=== PATIENT | female | born 1970 | race African-American/Black ===

== ENCOUNTER 2016-05-13 17:22 | Emergency (ER) | payer SELFPAY ==
[2016-05-13 17:45] VITALS: BP 130/84
--- NOTE | 2016-05-13 17:48 | ER Document Report ---
ED Medical Screen (RME) - General Stated Complaint: FEVER Time seen by provider: 17:46 Mode of Arrival: Ambulatory Information source: Patient Notes: 45-year-old female presents to ED for fever when the highest was 104. States when she starts got cough and really hard she vomits. [id number] was diagnosed with pneumonia 3 days ago. She states she did not get a flu shot this year I have greeted and performed a rapid initial assessment of this patient. A comprehensive ED assessment and evaluation of the patient, analysis of test results and completion of medical decision making process will be conducted by an additional ED providers. - Related Data Allergies/Adverse Reactions: No Known Allergies Allergy (Verified 07/27/12 14:08) Past Medical History - Social History Family history: Reviewed & Not Pertinent Past Surgical History: Reports: Hx Gynecologic Surgery - ECTOPIC PREG, L TUBE & OVARY REMOVED. Physical Exam - Vital signs Vitals: Temp Pulse Resp BP Pulse Ox 98.3 F 52 L 16 130/84 H 98 05/13/16 17:45 05/13/16 17:45 05/13/16 17:45 05/13/16 17:45 05/13/16 17:45 Course - Vital Signs Vital signs: Temp Pulse Resp BP Pulse Ox 98.3 F 52 L 16 130/84 H 98 05/13/16 17:45 05/13/16 17:45 05/13/16 17:45 05/13/16 17:45 05/13/16 17:45
[2016-05-13 18:22] LABS: ABSOLUTE BASOPHILS # (AUTO) 0.1 10^3/uL (0.0-0.2); ABSOLUTE LYMPHOCYTES (AUTO) 1.7 10^3/uL (0.5-4.7); ABSOLUTE MONOCYTES (AUTO) 1.2 10^3/uL (0.1-1.4); ABSOLUTE NEUT (AUTO) 9.6 10^3/uL (1.7-8.2); BASOPHILS % (AUTO) 0.7 % (0-2); HEMATOCRIT 46.8 % (36.0-47.0); HEMOGLOBIN 15.8 g/dL (12.0-15.5); HGB HCT DIFFERENCE 0.6; LYMPHOCYTES % (AUTO) 13.7 % (13-45); MEAN CORPUSCULAR HEMOGLOBIN 31.4 pg (27.0-33.4); MEAN CORPUSCULAR HGB CONC 33.7 g/dL (32.0-36.0); MEAN CORPUSCULAR VOLUME 93 fl (80-97); MONOCYTES % (AUTO) 9.4 % (3-13); RED BLOOD COUNT 5.02 10^6/uL (3.72-5.28); RED CELL DISTRIBUTION WIDTH 13.2 % (11.5-14.0); SEGMENTED NEUTROPHILS % (AUTO) 76.2 % (42-78); WHITE BLOOD COUNT 12.6 10^3/uL (4.0-10.5)
[2016-05-13 18:31] LABS: APPEARANCE,URINE SLIGHTLY-CLOUDY; BILIRUBIN,URINE NEGATIVE (NEGATIVE); GLUCOSE, URINE NEGATIVE (NEGATIVE); KETONES,URINE 80 mg/dL (NEGATIVE); LEUKOCYTE ESTERASE,URINE NEGATIVE (NEGATIVE); NITRITE,URINE NEGATIVE (NEGATIVE); PROTEIN,URINE 100 mg/dL (NEGATIVE); URINE SPECIFIC GRAVITY 1.031
[2016-05-13 18:43] LABS: ALANINE AMINOTRANSFERASE 48 U/L (9-52); ALKALINE PHOSPHATASE 111 U/L (38-126); ANION GAP 17 (5-19); ASPARTATE AMINO TRANSFERASE 34 U/L (14-36); BILIRUBIN,TOTAL 0.9 mg/dL (0.2-1.3); BLOOD UREA NITROGEN 13 mg/dL (7-20); CALCIUM 10.8 mg/dL (8.4-10.2); CARBON DIOXIDE 25 mmol/L (22-30); CHLORIDE 100 mmol/L (98-107); GLUCOSE 98 mg/dL (75-110); POTASSIUM 4.3 mmol/L (3.6-5.0); SODIUM 141.9 mmol/L (137-145); TOTAL PROTEIN 8.8 g/dL (6.3-8.2)
[2016-05-13] MEDS ORDERED: KETOROLAC TROMETHAMINE 60 MG/2 ML SDV IM ONE (19:05)
[2016-05-13] MEDS ORDERED: PROMETHAZINE HCL INJ 25 MG/1 ML VIAL IM ONE (19:05)
--- NOTE | 2016-05-13 19:14 | ER Document Report ---
ED Flu Like - General Chief Complaint: Flu Symptoms Stated Complaint: FEVER Mode of Arrival: Ambulatory Information source: Patient Notes: This is a 45-year-old female who presents with three-day history of cough and congestion along with fever at home up to 104. She states that at times her sputum is green. She has also had some posttussive emesis today and decreased by mouth intake. Also today she has had some diarrhea. She denies any known sick contacts and no recent travel. TRAVEL OUTSIDE OF THE [place] IN LAST 30 DAYS: No - Related Data Allergies/Adverse Reactions: No Known Allergies Allergy (Verified 05/13/16 17:46) Past Medical History - General Information source: Patient - Social History Smoking Status: Current Every Day Smoker Chew tobacco use (# tins/day): No Frequency of alcohol use: Occasional Drug Abuse: Marijuana Family History: Reviewed & Not Pertinent Patient has suicidal ideation: No Patient has homicidal ideation: No Neurological Medical History: Reports: Hx Seizures - previous hx Renal/ Medical History: Denies: Hx Peritoneal Dialysis Past Surgical History: Reports: Hx Gynecologic Surgery - ECTOPIC PREG, L TUBE & OVARY REMOVED. Review of Systems - Review of Systems Notes: REVIEW OF SYSTEMS: CONSTITUTIONAL : Fevers as per history of present illness EENT: Denies eye, ear, throat, or mouth pain or symptoms. Nasal congestion as for history of present illness CARDIOVASCULAR: Denies chest pain. RESPIRATORY: As per history of present illness GASTROINTESTINAL: Denies abdominal pain. Denies nausea, vomiting. Diarrhea as per history of present illness GENITOURINARY: Denies difficulty urinating, painful urination, burning, frequency, or blood in urine. MUSCULOSKELETAL: Denies neck or back pain or joint pain or swelling. SKIN: Denies rash or skin lesions. HEMATOLOGIC : Denies easy bruising or bleeding. LYMPHATIC: Denies swollen, enlarged glands. NEUROLOGICAL: Denies altered mental status or loss of consciousness. Denies headache. PSYCHIATRIC: Denies anxiety or stress or depression. ALL OTHER SYSTEMS REVIEWED AND NEGATIVE. Physical Exam - Vital signs Vitals: Temp Pulse Resp BP Pulse Ox 98.3 F 52 L 16 130/84 H 98 05/13/16 17:45 05/13/16 17:45 05/13/16 17:45 05/13/16 17:45 05/13/16 17:45 - Notes Notes: PHYSICAL EXAMINATION: GENERAL: Thin -[place] female who appears to not feel well but is nontoxic. She is alert and conversant. HEAD: Atraumatic, normocephalic. EYES: Pupils equal round and reactive to light, extraocular movements intact, sclera anicteric, conjunctiva are normal. ENT: nares patent, oropharynx clear without exudates. Mucous membranes somewhat dry. NECK: Normal range of motion, supple without lymphadenopathy LUNGS: Breath sounds clear to auscultation bilaterally and equal. No wheezes rales or rhonchi. HEART: Regular rate and rhythm without murmurs ABDOMEN: Soft, nontender, normoactive bowel sounds. No guarding, no rebound. No masses appreciated. EXTREMITIES: Normal range of motion, no pitting or edema. No cyanosis. NEUROLOGICAL: Cranial nerves grossly intact. Normal speech, no gross focal motor or sensory deficits noted PSYCH: Normal mood, normal affect. SKIN: Warm, Dry, normal turgor, no rashes or lesions noted. Course - Vital Signs Vital signs: Temp Pulse Resp BP Pulse Ox 98.3 F 52 L 16 130/84 H 98 05/13/16 17:45 05/13/16 17:45 05/13/16 17:45 05/13/16 17:45 05/13/16 17:45 - Laboratory Result Diagrams: 05/13/16 17:55 05/13/16 17:55 Laboratory results interpreted by me: 05/13/16 05/13/16 05/13/16 17:55 17:55 18:00 WBC 12.6 H Hgb 15.8 H Absolute Neutrophils 9.6 H Calcium 10.8 H Total Protein 8.8 H Urine Protein 100 H Urine Ketones 80 H Urine Urobilinogen 2.0 H Discharge - Discharge Clinical Impression: Flu-like symptoms, Tobacco abuse Condition: Stable Disposition: HOME, SELF-CARE Additional Instructions: INFLUENZA: The physician feels that you have influenza -- the "flu". Influenza is an infection caused by a virus. Symptoms include generalized aching, fever, headache, dry cough, and fatigue. Some patients with the flu also have nausea, vomiting, and diarrhea. The fever and aches usually last two to four days, with the cough persisting another one to two weeks. Treatment of the flu, for the most part, is simply treatment of symptoms. Rest, drink plenty of fluids, and use acetaminophen for fever and aches. Do not take aspirin. There is an anti-viral medication, called Tamiflu, which may help in "type A" flu, but it's not helpful in every case of flu, and only works if started within the first 24 - 48 hours of the start of symptoms. The physician will determine whether this medication can help you. To prevent spread of the virus, use good handwashing. Shared toys should be cleaned with disinfectant. Clean the toilets, sinks, and counter surfaces in bathrooms. Launder clothing in hot water. What are conditions that should receive medical attention? The development of difficulty breathing. Lip color changes to blue or purple. Persistent vomiting and unable to keep liquids down with signs of dehydration such as: dizziness when standing, unable to urinate, or if child/ is crying no tears are noticed. Is less responsive than normal or becomes confused. How do I decrease the spread of flu in my home? Taking care of the sick patient at home: Keep the sick person in a room separate from the common areas of the house. Keep the "sickroom" door closed. If the person with the flu needs to leave the home, they should cover their nose/mouth when coughing or sneezing and wear a disposable (surgical) mask if available. These masks may be available at your local pharmacy, medical supply and hardware store. If the sick person is in common areas of the house, have them wear a surgical mask. If possible, have the sick person use a separate bathroom that should be cleaned daily with a household disinfectant. If you are the caregiver: Avoid being face to face with the sick adult person as much as possible. Try to stay at least 6 feet away and wear a disposable surgical mask when possible. When holding small children who are sick, place their chin on your shoulder so that they will not cough in your face. Wash your hands after you touch the sick person or handle their tissues and laundry. Wear a mask if you leave home, as you may be infected from taking care of someone and not know it yet. Watch yourself and others in the home for flu symptoms and contact your doctor if symptoms occur. NOTE: Antiviral medication used to reduce the symptoms of the flu works only if taken within 48 hours, and best within 24 hours of symptom onset. Household Cleaning, laundry and waste disposal: Tissues and other disposable items used by the sick person should be thrown away in the trash. Wash your hands after touching these used items. No special waste disposal is required. Keep surfaces (especially bedside tables, bathroom surfaces, and toys for children) clean by wiping them down with a safe household disinfectant according to the directions on the product label. Per Center for Disease Control advice, most people will not receive testing to confirm flu. Also based on the person's health history and onset of symptoms, not all patients will receive prescriptions for antiviral medications. If you have questions related to this, please ask your healthcare provider. For more information, you can call the Centers for Disease Control and Prevention (CDC) Hotline at 3-537-[employer]KZBioDtech This line is available in Nepalese and Bermudian, 24 hours a day, 7 days a week. Or www.[employer] or www.cdc.gov Flu-Like Illness Home Instructions: The influenza virus infection can cause a wide rage of symptoms, including: Fever, cough, sore throat, body aches, headaches, chills, fatigue, with some patients reporting diarrhea and vomiting Like seasonal influenza A, H1N1 ("swine flu")in humans can vary in severity from mild to severe Severe illness with pneumonia, respiratory failure and even is possible Certain groups might be more likely to develop a severe illness from H1N1 infection. Sometimes bacterial infections may occur at the same time as or after infection with influenza viruses and lead to pneumonias, ear infections, or sinus infections. How Flu Spreads The main way that influenza viruses spread is through respiratory droplets of coughs and sneezes. This can happen when someone with the infection coughs or sneezes and the particles fly through the air and land on other people and surfaces. If the person covers their mouth and nose with their hand but does not wash their hands immediately, then these germs are passed onto the next object that they touch. People with Influenza A or suspected H1N1 (swine flu) who are cared for at home should: Check with their doctor about any special care that they might need if they are or have a health condition such as diabetes, heart disease, asthma or emphysema. Also, limit caregiver to one (if possible). women or those with chronic health conditions should not take care of the flu patient unless necessary. Check with their doctor about whether or not medications are needed that may lessen the symptoms of the flu. Stay at home until 24 hours fever free without the use of fever reducing medication. Get plenty of rest and avoid other healthy people in your home. Drink plenty of clear liquids to keep from getting dehydrated. Take medications like Tylenol (Acetaminophen), Advil/Motrin/Nuprin ( Ibuprofen) or Aleve (Naproxen) for fevers and aches. All children under the age of 18 years of age should not take aspirin or products containing aspirin (e.g. Pepto Bismol), as this can cause a rare serious illness called Neil Syndrome. Over the counter medications for flu and colds may help, but it is very important to follow the package directions. Remember that the medicine may help the symptoms, but it will not help prevent others from getting sick if they are around you. Cover coughs and sneezes using your bent arm. Clean hands with soap and water or an alcohol-based hand rub often, especially after using tissues to cough or sneeze. Encourage hand washing frequently for all people living in the home! The sick person should not have visitors other than caregivers. Encourage concerned loved ones to call instead of visit. Avoid close contact with others-do not go to work or school while sick. FOLLOW-UP CARE: If you have been referred to a physician for follow-up care, call the physician s office for an appointment as you were instructed or within the next two days. If you experience worsening or a significant change in your symptoms, notify the physician immediately or return to the Emergency Department at any time for re-evaluation. Rest and drink plenty of fluids. Continue Tylenol and ibuprofen as needed for fevers. Take antibiotics as prescribed. Follow-up with your primary care physician this week and return to the emergency department for any worsening symptoms or concerns. Prescriptions: Azithromycin [Zithromax 250 mg Tablet] 250 mg PO ASDIR PRN #6 tablet PRN Reason: Promethazine HCl [Phenergan 25 mg Tablet] 25 mg PO Q8H PRN #10 tablet PRN Reason: For Nausea/Vomiting
[2016-05-13] MEDS ORDERED: PROMETHAZINE HCL INJ 25 MG/1 ML VIAL ONE (20:08)
== END 2016-05-13 20:52 | disposition home or self-care (01) ==
LOC: ER 17:22
DX: R50.9 Fever, unspecified (principal); R05 Cough; R68.89 Other general symptoms and signs; R19.7 Diarrhea, unspecified; F17.200 Nicotine dependence, unspecified, uncomplicated
CPT/HCPCS: 99284; 96372; 36415; 84703; 85025; 80053; 81001; 87804; 71020; J1885; J2550

== ENCOUNTER 2016-05-15 15:22 | Emergency (ER) | payer SELFPAY ==
[2016-05-15] MEDS ORDERED: ASPIRIN 81 MG TABLET, CHEWABLE PO ONE (15:39)
--- NOTE | 2016-05-15 15:41 | ER Document Report ---
ED Medical Screen (RME) - General Stated Complaint: SHORTNESS OF BREATH Mode of Arrival: Wheelchair Information source: Patient Notes: Patient reports shortness of breath that started 2 days ago. Patient states she was recently diagnosed with influenza. Patient complains of left side chest pressure difficulty breathing. Patient does report nausea with dry heaving. hx: None TRAVEL OUTSIDE OF THE [place] IN LAST 30 DAYS: No - Related Data Allergies/Adverse Reactions: No Known Allergies Allergy (Verified 05/15/16 15:36) Past Medical History - Social History Family history: Reviewed & Not Pertinent Neurological Medical History: Reports: Hx Seizures - previous hx Renal/ Medical History: Denies: Hx Peritoneal Dialysis Past Surgical History: Reports: Hx Gynecologic Surgery - ECTOPIC PREG, L TUBE & OVARY REMOVED. Physical Exam - Cardiovascular Rhythm: Regular Heart sounds: S1 appreciated, S2 appreciated
[2016-05-15 16:14] LABS: ABSOLUTE BASOPHILS # (AUTO) 0.1 10^3/uL (0.0-0.2); ABSOLUTE LYMPHOCYTES (AUTO) 2.5 10^3/uL (0.5-4.7); ABSOLUTE MONOCYTES (AUTO) 1.8 10^3/uL (0.1-1.4); ABSOLUTE NEUT (AUTO) 12.1 10^3/uL (1.7-8.2); BASOPHILS % (AUTO) 0.6 % (0-2); EOSINOPHILS % (AUTO) 0.1 % (0-6); HEMATOCRIT 47.3 % (36.0-47.0); HGB HCT DIFFERENCE 0.7; LYMPHOCYTES % (AUTO) 15.3 % (13-45); MEAN CORPUSCULAR HEMOGLOBIN 31.3 pg (27.0-33.4); MEAN CORPUSCULAR HGB CONC 33.9 g/dL (32.0-36.0); MEAN CORPUSCULAR VOLUME 93 fl (80-97); MONOCYTES % (AUTO) 10.7 % (3-13); RED BLOOD COUNT 5.11 10^6/uL (3.72-5.28); RED CELL DISTRIBUTION WIDTH 13.1 % (11.5-14.0); SEGMENTED NEUTROPHILS % (AUTO) 73.3 % (42-78); WHITE BLOOD COUNT 16.5 10^3/uL (4.0-10.5)
[2016-05-15 16:31] LABS: APPEARANCE,URINE SLIGHTLY-CLOUDY; BILIRUBIN,URINE NEGATIVE (NEGATIVE); GLUCOSE, URINE NEGATIVE (NEGATIVE); KETONES,URINE 20 mg/dL (NEGATIVE); LEUKOCYTE ESTERASE,URINE NEGATIVE (NEGATIVE); NITRITE,URINE NEGATIVE (NEGATIVE); PROTEIN,URINE 100 mg/dL (NEGATIVE)
[2016-05-15 16:35] LABS: ALANINE AMINOTRANSFERASE 42 U/L (9-52); ALBUMIN 4.7 g/dL (3.5-5.0); ALKALINE PHOSPHATASE 112 U/L (38-126); ANION GAP 18 (5-19); ASPARTATE AMINO TRANSFERASE 39 U/L (14-36); BILIRUBIN,TOTAL 1.1 mg/dL (0.2-1.3); BLOOD UREA NITROGEN 13 mg/dL (7-20); CALCIUM 10.2 mg/dL (8.4-10.2); CARBON DIOXIDE 20 mmol/L (22-30); CHLORIDE 99 mmol/L (98-107); CREATINE KINASE 421 U/L (30-135); CREATININE RESULT 0.62 mg/dL (0.52-1.25); GLUCOSE 116 mg/dL (75-110); POTASSIUM 3.6 mmol/L (3.6-5.0); SODIUM 136.6 mmol/L (137-145); TOTAL PROTEIN 8.7 g/dL (6.3-8.2)
[2016-05-15 16:36] LABS: URINE BARBITURATES SCREEN NEGATIVE; URINE METHADONE SCREEN NEGATIVE; URINE OPIATES LOW NEGATIVE; URINE PHENCYCLIDINE SCREEN NEGATIVE
[2016-05-15 16:44] LABS: CREATINE KINASE MB 1.95 ng/mL (<4.55)
[2016-05-15 16:45] LABS: TROPONIN I < 0.012 ng/mL
[2016-05-15] MEDS ORDERED: IPRATROPIUM/ALBUTEROL 0.5-2.5 MG/3 ML AMPUL NEB ONE ×3 (17:40→17:41)
[2016-05-15] MEDS ORDERED: HYDROCODONE BIT/HOMATROPINE 5-1.5 MG TABLET PO ONE (17:41)
[2016-05-15] MEDS ORDERED: LEVOFLOXACIN 750 MG TABLET PO ONE (17:41)
[2016-05-15] MEDS ORDERED: PROMETHAZINE HCL 25 MG TABLET PO ONE (18:04)
--- NOTE | 2016-05-15 18:08 | ER Document Report ---
ED General - General Chief Complaint: Shortness Of Breath Stated Complaint: SHORTNESS OF BREATH Mode of Arrival: Wheelchair Information source: Patient Notes: 45-year-old female presents with complaints of body aches fevers productive cough shortness of breath of about one week duration. Patient admits to nausea vomiting TRAVEL OUTSIDE OF THE [place] IN LAST 30 DAYS: No - HPI Onset: Last week Onset/Duration: Persistent Quality of pain: Achy Severity: Mild Pain Level: 1 Associated symptoms: Body/muscle aches, Productive cough, Fever Exacerbated by: Denies Relieved by: Denies Similar symptoms previously: Yes Recently seen / treated by doctor: Yes - Related Data Allergies/Adverse Reactions: No Known Allergies Allergy (Verified 05/15/16 15:36) Past Medical History - General Information source: Patient - Social History Smoking Status: Current Every Day Smoker Cigarette use (# per day): Yes Chew tobacco use (# tins/day): No Smoking Education Provided: Yes - Patient counselled regarding cessation for 4 minutes Frequency of alcohol use: None Drug Abuse: None Family History: Reviewed & Not Pertinent Patient has suicidal ideation: No Patient has homicidal ideation: No Neurological Medical History: Reports: Hx Seizures - previous hx Renal/ Medical History: Denies: Hx Peritoneal Dialysis Past Surgical History: Reports: Hx Gynecologic Surgery - ECTOPIC PREG, L TUBE & OVARY REMOVED. Review of Systems - Review of Systems Notes: REVIEW OF SYSTEMS: CONSTITUTIONAL : Admits fevers EENT: Denies eye, ear, throat, or mouth pain or symptoms. Denies nasal or sinus congestion or discharge. Denies throat, tongue, or mouth swelling or difficulty swallowing. CARDIOVASCULAR: Denies chest pain. Denies palpitations or racing or irregular heart beat. Denies ankle edema. RESPIRATORY: Admits cough congestion wheezing GASTROINTESTINAL: Denies abdominal pain or distention. Denies nausea, vomiting , or diarrhea. Denies blood in vomitus, stools, or per rectum. Denies black, tarry stools. Denies constipation. GENITOURINARY: Denies difficulty urinating, painful urination, burning, frequency, blood in urine, or discharge. FEMALE GENITOURINARY: Denies vaginal bleeding, heavy or abnormal periods, irregular periods. Denies vaginal discharge or odor. MUSCULOSKELETAL: Admits to body aches SKIN: Denies rash, lesions or sores. HEMATOLOGIC : Denies easy bruising or bleeding. LYMPHATIC: Denies swollen, enlarged glands. NEUROLOGICAL: Denies confusion or altered mental status. Denies passing out or loss of consciousness. Denies dizziness or lightheadedness. Denies headache. Denies weakness or paralysis or loss of use of either side. Denies problems with gait or speech. Denies sensory loss, numbness, or tingling. Denies seizures. PSYCHIATRIC: Denies anxiety or stress. Denies depression, suicidal ideation, or homicidal ideation. ALL OTHER SYSTEMS REVIEWED AND NEGATIVE. Dictation was performed using [employer] voice recognition software PHYSICAL EXAMINATION: GENERAL: Well-appearing, well-nourished and in no acute distress. HEAD: Atraumatic, normocephalic. EYES: Pupils equal round and reactive to light, extraocular movements intact, conjunctiva are normal. ENT: Nares patent, oropharynx clear without exudates. Moist mucous membranes. NECK: Normal range of motion, supple without lymphadenopathy LUNGS: Coarse breath sounds wheezing all throughout tachypneic HEART: Regular rate and rhythm without murmurs ABDOMEN: Soft, nontender, nondistended abdomen. No guarding, no rebound. No masses appreciated. Female : deferred Musculoskeletal: Normal range of motion, no pitting or edema. No cyanosis. NEUROLOGICAL: Cranial nerves grossly intact. Normal speech, normal gait. Normal sensory, motor exams PSYCH: Normal mood, normal affect. SKIN: Warm, Dry, normal turgor, no rashes or lesions noted. Physical Exam - Vital signs Vitals: Temp Pulse Resp BP Pulse Ox 98.4 F 111 H 16 129/72 H 99 05/15/16 16:00 05/15/16 16:00 05/15/16 16:00 05/15/16 16:00 05/15/16 16:00 Course - Re-evaluation Re-evalutation: 05/15/16 18:07 Patient noted to have increased white count, chest x-rays consistent with a left lower lobe pneumonia. 05/15/16 18:32 Patient notes significant relief after 3 duo nebs, she is aerating much better. She will be ambulated and pulse ox will be rechecked 05/15/16 20:01 Patient is insistent that she go home, she was ambulated satting 96% however becomes tachycardic at 121. I spent to her with some benefits and I did offer her admission. Patient states she wants to go home. She understands risks and benefits and states she will return immediately if there are any other concerns. Family members in agreement with her plan. I gave them my card and instructed them to return immediately or to call me if there is any other concerns After performing a Medical Screening Examination, I estimate there is LOW risk for ACUTE CORONARY SYNDROME, RESPIRATORY FAILURE, SEPSIS OR MENINGITIS, thus I consider the discharge disposition reasonable. The patient and I have discussed the diagnosis and risks, and we agree with discharging home with close follow- up. We also discussed returning to the Emergency Department immediately if new or worsening symptoms occur. We have discussed the symptoms which are most concerning (e.g., changing or worsening pain, trouble swallowing or breathing, neck stiffness, fever) that necessitate immediate return. - Vital Signs Vital signs: Temp Pulse Resp BP Pulse Ox 98.4 F 111 H 16 129/72 H 99 05/15/16 16:00 05/15/16 16:00 05/15/16 16:00 05/15/16 16:00 05/15/16 16:00 - Laboratory Result Diagrams: 05/15/16 15:50 05/15/16 15:50 Laboratory results interpreted by me: 05/15/16 05/15/16 05/15/16 15:50 15:50 15:50 WBC 16.5 H Hgb 16.0 H Hct 47.3 H Absolute Neutrophils 12.1 H Absolute Monocytes 1.8 H Sodium 136.6 L Carbon Dioxide 20 L Glucose 116 H AST 39 H Creatine Kinase 421 H Total Protein 8.7 H Urine Protein 100 H Urine Ketones 20 H Urine Urobilinogen 4.0 H - Diagnostic Test Radiology reviewed: Image reviewed, Reports reviewed Discharge - Discharge Clinical Impression: Encounter for smoking cessation counseling, Respiratory distress Pneumonia Qualifiers: Pneumonia type: due to unspecified organism Laterality: left Lung location: lower lobe of lung Qualified Code(s): J18.1 - Lobar pneumonia, unspecified organism Condition: Stable Disposition: HOME, SELF-CARE Instructions: Pneumonia ([facility]) Additional Instructions: Return immediately if there are any other concerns Prescriptions: Hydrocodone Bit/Homatropine [Hycodan 5-1.5 mg Tablet] 1 tab PO Q4HP PRN #24 tablet PRN Reason: Levofloxacin [Levaquin 750 mg Tablet] 750 mg PO DAILY #5 tablet Prednisone [Deltasone 20 mg Tablet] 3 tab PO DAILY 5 Days
--- NOTE | 2016-05-15 18:30 | EKG REPORT ---
SEVERITY:- ABNORMAL ECG - SINUS RHYTHM LEFT AXIS DEVIATION IRBBB : Confirmed by: Michael Lao MD 15-May-2016 18:30:26
[2016-05-15] MEDS ORDERED: DEXAMETHASONE SOD PHOS INJ 10 MG/1 ML VIAL IM ONE (20:52)
[2016-05-16 00:18] VITALS: BP 119/79
== END 2016-05-15 20:55 | disposition home or self-care (01) ==
LOC: ER 15:22
DX: J18.1 Lobar pneumonia, unspecified organism (principal); R06.02 Shortness of breath; R11.2 Nausea with vomiting, unspecified; M79.1 Myalgia; R50.9 Fever, unspecified; R05 Cough; F17.210 Nicotine dependence, cigarettes, uncomplicated; Z71.6 Tobacco abuse counseling; R06.2 Wheezing; D72.829 Elevated white blood cell count, unspecified
CPT/HCPCS: 93005; 99406; 94640 ×2; 99285; 96372; 36415; 82553; 82550; 84703; 85025; 80053; 81001; 84484; 80307; 71020; 93010; J1100; J7620

== ENCOUNTER 2016-05-20 11:10 | Emergency (ER) | payer SELFPAY ==
[2016-05-20] MEDS ORDERED: ONDANSETRON 4 MG TAB.RAPDIS PO ONE (11:23)
--- NOTE | 2016-05-20 11:24 | ER Document Report ---
ED Medical Screen (RME) - General Stated Complaint: STOMACH PAIN Time seen by provider: 11:22 Mode of Arrival: Ambulatory Notes: Patient states this is her third visit to the emergency room, last visit was about 1 week ago when she was diagnosed with pneumonia. States continuing to have vomiting since them, unable to keep anything down. I have greeted and performed a rapid initial assessment of this patient. A comprehensive ED assessment and evaluation of the patient, analysis of test results and completion of the medical decision making process will be conducted by additional ED providers. TRAVEL OUTSIDE OF THE [place] IN LAST 30 DAYS: No - Related Data Allergies/Adverse Reactions: No Known Allergies Allergy (Verified 05/20/16 11:21) Past Medical History - Social History Family history: Reviewed & Not Pertinent Neurological Medical History: Reports: Hx Seizures - previous hx Renal/ Medical History: Denies: Hx Peritoneal Dialysis Past Surgical History: Reports: Hx Gynecologic Surgery - ECTOPIC PREG, L TUBE & OVARY REMOVED. Physical Exam - Abdominal Inspection: Normal Tenderness: Tender - epigastric area
[2016-05-20 12:14] LABS: ABSOLUTE LYMPHOCYTES (AUTO) 3.7 10^3/uL (0.5-4.7); ABSOLUTE MONOCYTES (AUTO) 0.6 10^3/uL (0.1-1.4); ABSOLUTE NEUT (AUTO) 4.9 10^3/uL (1.7-8.2); BASOPHILS % (AUTO) 0.4 % (0-2); EOSINOPHILS % (AUTO) 0.5 % (0-6); HEMATOCRIT 44.7 % (36.0-47.0); HEMOGLOBIN 15.4 g/dL (12.0-15.5); HGB HCT DIFFERENCE 1.5; LYMPHOCYTES % (AUTO) 39.5 % (13-45); MEAN CORPUSCULAR HEMOGLOBIN 31.8 pg (27.0-33.4); MEAN CORPUSCULAR HGB CONC 34.4 g/dL (32.0-36.0); MEAN CORPUSCULAR VOLUME 92 fl (80-97); MONOCYTES % (AUTO) 6.8 % (3-13); RED BLOOD COUNT 4.84 10^6/uL (3.72-5.28); RED CELL DISTRIBUTION WIDTH 12.8 % (11.5-14.0); SEGMENTED NEUTROPHILS % (AUTO) 52.8 % (42-78); WHITE BLOOD COUNT 9.3 10^3/uL (4.0-10.5)
[2016-05-20] MEDS ORDERED: ONDANSETRON HCL INJ/PF 4 MG/2 ML SDV IV ONE (12:28)
[2016-05-20] MEDS ORDERED: IPRATROPIUM/ALBUTEROL 0.5-2.5 MG/3 ML AMPUL NEB ONE (12:28)
[2016-05-20] MEDS ORDERED: NORMAL SALINE 1000 ML 1,000 ML IV ONE (12:28)
[2016-05-20 12:45] LABS: ALANINE AMINOTRANSFERASE 39 U/L (9-52); ALBUMIN 4.3 g/dL (3.5-5.0); ALKALINE PHOSPHATASE 76 U/L (38-126); ANION GAP 10 (5-19); ASPARTATE AMINO TRANSFERASE 21 U/L (14-36); BILIRUBIN,TOTAL 0.8 mg/dL (0.2-1.3); BLOOD UREA NITROGEN 16 mg/dL (7-20); CALCIUM 10.5 mg/dL (8.4-10.2); CARBON DIOXIDE 33 mmol/L (22-30); CHLORIDE 99 mmol/L (98-107); CREATININE RESULT 0.87 mg/dL (0.52-1.25); GLUCOSE 92 mg/dL (75-110); POTASSIUM 4.3 mmol/L (3.6-5.0); SODIUM 141.6 mmol/L (137-145); TOTAL PROTEIN 7.7 g/dL (6.3-8.2)
[2016-05-20 14:09] LABS: APPEARANCE,URINE SLIGHTLY-CLOUDY; BILIRUBIN,URINE NEGATIVE (NEGATIVE); GLUCOSE, URINE NEGATIVE (NEGATIVE); KETONES,URINE TRACE mg/dL (NEGATIVE); LEUKOCYTE ESTERASE,URINE NEGATIVE (NEGATIVE); NITRITE,URINE NEGATIVE (NEGATIVE); PROTEIN,URINE NEGATIVE (NEGATIVE); URINE SPECIFIC GRAVITY 1.019; UROBILINOGEN,URINE NEGATIVE mg/dL (<2.0)
[2016-05-20 14:20] VITALS: BP 121/76
--- NOTE | 2016-05-20 14:22 | ER Document Report ---
ED General - General Chief Complaint: uti,flank pain Stated Complaint: STOMACH PAIN Mode of Arrival: Ambulatory Information source: Patient Notes: 45-year-old female presents with complaints of decreased appetite nausea vomiting. Patient notes that she was seen by myself about a week ago was diagnosed with pneumonia was offered admission but refused to be admitted. He notes she's been taking her antibiotics but continues to have intermittent cough with sputum. TRAVEL OUTSIDE OF THE [place] IN LAST 30 DAYS: No - HPI Onset: Last week Onset/Duration: Persistent Quality of pain: Achy Severity: Mild Pain Level: 1 Associated symptoms: Productive cough, Nausea, Vomiting Exacerbated by: Denies Relieved by: Denies Similar symptoms previously: Yes Recently seen / treated by doctor: Yes - Related Data Allergies/Adverse Reactions: No Known Allergies Allergy (Verified 05/20/16 11:21) Past Medical History - Social History Smoking Status: Current Every Day Smoker Cigarette use (# per day): Yes Chew tobacco use (# tins/day): No Smoking Education Provided: No Frequency of alcohol use: Social Drug Abuse: Marijuana Family History: Reviewed & Not Pertinent Patient has suicidal ideation: No Patient has homicidal ideation: No Neurological Medical History: Reports: Hx Seizures - previous hx Renal/ Medical History: Denies: Hx Peritoneal Dialysis Past Surgical History: Reports: Hx Gynecologic Surgery - ECTOPIC PREG, L TUBE & OVARY REMOVED. Review of Systems - Review of Systems Notes: PHYSICAL EXAMINATION: GENERAL: Well-appearing, well-nourished and in no acute distress. HEAD: Atraumatic, normocephalic. EYES: Pupils equal round and reactive to light, extraocular movements intact, conjunctiva are normal. ENT: Nares patent, oropharynx clear without exudates. Moist mucous membranes. NECK: Normal range of motion, supple without lymphadenopathy LUNGS: Breath sounds clear to auscultation bilaterally and equal. No wheezes rales or rhonchi. HEART: Regular rate and rhythm without murmurs ABDOMEN: Soft, nontender, nondistended abdomen. No guarding, no rebound. No masses appreciated. Female : deferred Musculoskeletal: Normal range of motion, no pitting or edema. No cyanosis. NEUROLOGICAL: Cranial nerves grossly intact. Normal speech, normal gait. Normal sensory, motor exams PSYCH: Normal mood, normal affect. SKIN: Warm, Dry, normal turgor, no rashes or lesions noted. Physical Exam - Vital signs Vitals: Temp Pulse Resp BP Pulse Ox 97.9 F 57 L 14 126/90 H 97 05/20/16 11:22 05/20/16 11:22 05/20/16 11:22 05/20/16 11:22 05/20/16 11:22 Course - Re-evaluation Re-evalutation: 05/20/16 14:20 Lab work notes significant improvement of white count, chest x-ray was normal. I believe patient's symptoms have improved significantly. She was given IV fluids and states that she feels great now. Her nausea is well controlled with Zofran. I will discharge her home with Zofran and close follow-up with her primary care physician. Patient and family are very happy with this plan After performing a Medical Screening Examination, I estimate there is LOW risk for ACUTE APPENDICITIS, BOWEL OBSTRUCTION, ACUTE CHOLECYSTITIS, PERFORATED DIVERTICULITIS, INCARCERATED HERNIA, PANCREATITIS, PELVIC INFLAMMATORY DISEASE, PERFORATED ULCER, ECTOPIC , or TUBO-OVARIAN ABSCESS, thus I consider the discharge disposition reasonable. Also, there is no evidence or peritonitis , sepsis, or toxicity. The patient and I have discussed the diagnosis and risks , and we agree with discharging home with close follow-up with the understanding that symptoms and presentations can change. We also discussed returning to the Emergency Department immediately if new or worsening symptoms occur. We have discussed the symptoms which are most concerning (e.g., bloody stool, fever, changing or worsening pain, vomiting) that necessitate immediate return. - Vital Signs Vital signs: Temp Pulse Resp BP Pulse Ox 97.9 F 57 L 14 126/90 H 97 05/20/16 11:22 05/20/16 11:22 05/20/16 11:22 05/20/16 11:22 05/20/16 11:22 - Laboratory Result Diagrams: 05/20/16 12:00 05/20/16 12:00 Laboratory results interpreted by me: 05/20/16 05/20/16 12:00 13:45 Carbon Dioxide 33 H Calcium 10.5 H Urine Ketones TRACE H - Diagnostic Test Radiology reviewed: Image reviewed, Reports reviewed Discharge - Discharge Clinical Impression: Nausea & vomiting Qualifiers: Vomiting type: unspecified Vomiting Intractability: non-intractable Qualified Code(s): R11.2 - Nausea with vomiting, unspecified Abdominal pain Qualifiers: Abdominal location: epigastric Qualified Code(s): R10.13 - Epigastric pain Condition: Stable Disposition: HOME, SELF-CARE Instructions: Abdominal Pain ([facility]) Additional Instructions: Follow up with your physician tomorrow for further care or return to the ED IMMEDIATELY if symptoms worsen or new concerns occur Prescriptions: Ondansetron [Zofran Odt 4 mg Tablet] 1 - 2 tab PO Q4H PRN #15 tab.rapdis PRN Reason: For Nausea/Vomiting
[2016-05-20] MEDS ORDERED: ALBUTEROL SULFATE HFA (90 MCG/PUFF) 8 GM MDI (1 MDI/ER DISP) IH PRN (14:33)
== END 2016-05-20 14:30 | disposition home or self-care (01) ==
LOC: ER 11:10
DX: R10.13 Epigastric pain (principal); R11.2 Nausea with vomiting, unspecified; J18.9 Pneumonia, unspecified organism; R63.0 Anorexia; R05 Cough; F17.210 Nicotine dependence, cigarettes, uncomplicated
CPT/HCPCS: 94640; 99284; 96360; 36415; 85025; 80053; 81001; 71020; S0119; J7030; J3490; J7620

== ENCOUNTER 2017-03-31 10:52 | Emergency (ER) | payer SELFPAY ==
[2017-03-31] MEDS ORDERED: IBUPROFEN 600 MG TABLET PO ONE (11:40)
[2017-03-31] MEDS ORDERED: ACETAMINOPHEN 325 MG TABLET PO ONE (11:40)
--- NOTE | 2017-03-31 11:43 | ER Document Report ---
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 She had to leave work today because of the pain. No shortness of breath. No fever. Associated Symptoms: None Exacerbated by: Movement Relieved by: Denies Similar symptoms previously: No Recently seen / treated by doctor: No - ROS ROS below otherwise negative: Yes Systems Reviewed and Negative: Yes All other systems reviewed and negative - REPRODUCTIVE Reproductive: DENIES: : - MUSCULOSKELETAL Musculoskeletal: REPORTS: Extremity pain - L rib cage Past Medical History - General Information source: Patient - Social History Smoking Status: Current Every Day Smoker Chew tobacco use (# tins/day): No Frequency of alcohol use: Occasional Drug Abuse: Marijuana Lives with: Family Family History: Reviewed & Not Pertinent Patient has suicidal ideation: No Patient has homicidal ideation: No Neurological Medical History: Reports: Hx Seizures - previous hx Renal/ Medical History: Denies: Hx Peritoneal Dialysis Past Surgical History: Reports: Hx Gynecologic Surgery - ECTOPIC PREG, L TUBE & OVARY REMOVED. Vertical Provider Document - CONSTITUTIONAL Agree With Documented VS: Yes Exam Limitations: No Limitations General Appearance: No Apparent Distress - INFECTION CONTROL TRAVEL OUTSIDE OF THE [place] IN LAST 30 DAYS: No - HEENT HEENT: Normocephalic - NECK Neck: Supple - RESPIRATORY Respiratory: Breath Sounds Normal, No Respiratory Distress, Other - tender left lower lateral ribs O2 Sat by Pulse Oximetry: 96 - CARDIOVASCULAR Cardiovascular: Regular Rate, Regular Rhythm - GI/ABDOMEN Gastrointestinal: Abdomen Soft, Abdomen Non-Tender, No Organomegaly, Normal Bowel Sounds - NEURO Level of Consciousness: Awake, Alert, Appropriate Motor/Sensory: No Motor Deficit, No Sensory Deficit - DERM Integumentary: Warm, Dry, No Rash Course - Re-evaluation Re-evalutation: 03/31/17 12:33 xray not done yet. 03/31/17 13:14 X-rays negative per radiologist - Vital Signs Vital signs: Temp Pulse Resp BP Pulse Ox 97.7 F 64 16 137/77 H 96 03/31/17 10:57 03/31/17 10:57 03/31/17 10:57 03/31/17 10:57 03/31/17 10:57 Discharge - Discharge Clinical Impression: left lower rib contusion Condition: Good Disposition: HOME, SELF-CARE Instructions: Rib Contusion ([facility]), Acetaminophen, Use of Ossl-Ezu-Srqemsc Ibuprofen ([facility]) Additional Instructions: warm compress motrin and tylenol for pain to er if worse Prescriptions: Ibuprofen [Motrin 600 mg Tablet] 600 mg PO Q8HP PRN #30 tablet PRN Reason: Forms: Parent Work Note
--- NOTE | 2017-03-31 13:09 | RADIOLOGY REPORT (SQ) ---
EXAM DESCRIPTION: RIBS LEFT W/PA CHEST COMPLETED DATE/TIME: 03/31/2017 12:40 pm REASON FOR STUDY: left lower chest wall contusion COMPARISON: Chest x-ray 05/20/2016. TECHNIQUE: Frontal view of the chest and additional views of the left ribs acquired. NUMBER OF VIEWS: Three view. LIMITATIONS: None. FINDINGS: FRONTAL CXR: No pneumothorax. No pleural effusion. Mild bibasilar atelectasis. RIBS: No displaced left-sided rib fracture. IMPRESSION: No displaced left-sided rib fracture. Mild bibasilar atelectasis. COMMENT: SITE OF TRAUMA/COMPLAINT MARKED/STAMP COMPLETED: NO. TECHNICAL DOCUMENTATION: JOB ID: [id number] [id number] 2010 [employer]- All Rights Reserved
[2017-03-31 14:17] VITALS: BP 130/70
== END 2017-03-31 14:16 | disposition home or self-care (01) ==
LOC: ER 10:52
DX: S20.212A Contusion of left front wall of thorax, initial encounter (principal); W01.190A Fall on same level from slipping, tripping and stumbling with subsequent striking against furniture, initial encounter; F17.200 Nicotine dependence, unspecified, uncomplicated
CPT/HCPCS: 99283

== ENCOUNTER 2017-12-04 16:24 | Emergency (ER) | payer SELFPAY ==
[2017-12-04] MEDS ORDERED: AZITHROMYCIN 250 MG TABLET PO ONE (17:31)
[2017-12-04] MEDS ORDERED: IBUPROFEN 600 MG TABLET PO ONE (17:31)
--- NOTE | 2017-12-04 17:35 | ER Document Report ---
ED ENT - General Chief Complaint: Sore Throat Stated Complaint: COUGH Time Seen by Provider: 12/04/17 17:31 Mode of Arrival: Ambulatory Information source: Patient Notes: Chief complaint: Cough sore throat History of complain:( obtained from----patient) 47 years old female presents today with nearly 1 day history of sore throat general malaise runny nose nasal congestion and coughing largely dry occasional yellow sputum. Feverish and chills. Denies any difficulty in breathing or wheezing. Denies any nausea vomiting diarrhea dysuria frequency. Onset: As above Duration: Gradual last 24 hours Severity: Mild to moderate Quality: As above Context: Unknown Exacerbating factor and relieving factors: None REVIEW OF SYSTEMS: CONSTITUTIONAL : Denies fever, chills, or sweats. Denies recent illness. EENT: Denies eye, ear, throat, or mouth pain or symptoms. Denies nasal or sinus congestion or discharge. Denies throat, tongue, or mouth swelling or difficulty swallowing. CARDIOVASCULAR: Denies chest pain. Denies palpitations or racing or irregular heart beat. Denies ankle edema. RESPIRATORY: Denies cough, cold, or chest congestion. Denies shortness of breath, difficulty breathing, or wheezing. GASTROINTESTINAL: Denies distention. Denies nausea, vomiting, or diarrhea. Denies blood in vomitus, stools, or per rectum. Denies black, tarry stools. Denies constipation. GENITOURINARY: Denies difficulty urinating, painful urination, burning, frequency, blood in urine, or discharge. FEMALE GENITOURINARY: Denies vaginal bleeding, heavy or abnormal periods, irregular periods. Denies vaginal discharge or odor. MUSCULOSKELETAL: Denies back or neck pain or stiffness. Denies joint pain or swelling. SKIN: Denies rash, lesions or sores. HEMATOLOGIC : Denies easy bruising or bleeding. LYMPHATIC: Denies swollen, enlarged glands. NEUROLOGICAL: Denies confusion or altered mental status. Denies passing out or loss of consciousness. Denies dizziness or lightheadedness. Denies headache. Denies weakness or paralysis or loss of use of either side. Denies problems with gait or speech. Denies sensory loss, numbness, or tingling. Denies seizures. PSYCHIATRIC: Denies anxiety or stress. Denies depression, suicidal ideation, or homicidal ideation. ALL OTHER SYSTEMS REVIEWED AND NEGATIVE. PHYSICAL EXAMINATION: GENERAL: Well-appearing, well-nourished and in no acute distress. HEAD: Atraumatic, normocephalic. EYES: Pupils equal round and reactive to light, extraocular movements intact, conjunctiva are normal. ENT: Nares patent, oropharynx clear without exudates. Moist mucous membranes. NECK: Normal range of motion, supple without lymphadenopathy LUNGS: Breath sounds clear to auscultation bilaterally and equal. No rales or rhonchi. Mild scattered wheezing heard expiratory HEART: Regular rate and rhythm without murmurs ABDOMEN: Soft, nontender, nondistended abdomen. No guarding, no rebound. No masses appreciated. Examination of genitals-deferred Musculoskeletal: Normal range of motion, no pitting or edema. No cyanosis. NEUROLOGICAL: Cranial nerves grossly intact. Normal speech, normal gait. Normal sensory, motor exams PSYCH: Normal mood, normal affect. SKIN: Warm, Dry, normal turgor, no rashes or lesions noted. Dictation was performed using [employer] voice recognition software TRAVEL OUTSIDE OF THE [place] IN LAST 30 DAYS: No - HPI Notes: Dictated - Related Data Allergies/Adverse Reactions: No Known Allergies Allergy (Verified 12/04/17 16:25) Past Medical History - Social History Smoking Status: Current Every Day Smoker Chew tobacco use (# tins/day): No Smoking Education Provided: No Frequency of alcohol use: Occasional Drug Abuse: None Lives with: Family Family History: Reviewed & Not Pertinent Patient has suicidal ideation: No Patient has homicidal ideation: No Neurological Medical History: Reports: Hx Seizures - previous hx Renal/ Medical History: Denies: Hx Peritoneal Dialysis Past Surgical History: Reports: Hx Gynecologic Surgery - ECTOPIC PREG, L TUBE & OVARY REMOVED. Review of Systems - Review of Systems Notes: Dictated Physical Exam - Vital signs Vitals: Temp Pulse Resp BP Pulse Ox 99.2 F 70 14 111/75 98 12/04/17 16:36 12/04/17 16:36 12/04/17 16:36 12/04/17 16:36 12/04/17 16:36 - Notes Notes: Dictated Course - Vital Signs Vital signs: Temp Pulse Resp BP Pulse Ox 99.2 F 70 14 111/75 98 12/04/17 16:36 12/04/17 16:36 12/04/17 16:36 12/04/17 16:36 12/04/17 16:36 - Diagnostic Test Radiology reviewed: Reports reviewed - Chest x-ray reported by radiologist as normal infiltration effusion or pneumothorax Discharge - Discharge Clinical Impression: Bronchitis Pharyngitis Qualifiers: Pharyngitis/tonsillitis etiology: unspecified etiology Qualified Code(s): J02.9 - Acute pharyngitis, unspecified Condition: Fair Disposition: HOME, SELF-CARE Instructions: Bronchitis ([facility]) Prescriptions: Ondansetron [Zofran Odt 4 mg Tablet] 1 - 2 tab PO Q4HP PRN #10 tab.rapdis PRN Reason: Albuterol Sulfate [Proair HFA Inhalation Aerosol 8.5 gm MDI] 2 puff IH Q4H PRN # 1 mdi PRN Reason: Azithromycin [Zithromax 250 mg Tablet] 250 mg PO ASDIR PRN #6 tablet PRN Reason: Guaifenesin/Codeine Phos [Robitussin-AC Syrup 59 ml] 5 ml PO QIDP PRN #60 ml PRN Reason:
--- NOTE | 2017-12-04 17:55 | RADIOLOGY REPORT (SQ) ---
EXAM DESCRIPTION: CHEST 2 VIEWS COMPLETED DATE/TIME: 12/04/2017 5:41 pm REASON FOR STUDY: Coughing COMPARISON: 05/20/2016 TECHNIQUE: Frontal and lateral radiographic views of the chest acquired. NUMBER OF VIEWS: Two view. LIMITATIONS: None. FINDINGS: LUNGS AND PLEURA: No pneumothorax. No consolidation or pleural effusion. MEDIASTINUM AND HILAR STRUCTURES: Stable. HEART AND VASCULAR STRUCTURES: Stable. BONES: No acute findings. HARDWARE: None in the chest. OTHER: No other significant finding. IMPRESSION: NO ACUTE FINDINGS. TECHNICAL DOCUMENTATION: JOB ID: [id number] [place]-[id number] 2010 [employer] All Rights Reserved Reading location - IP/workstation name: [email or web address]
[2017-12-04] MEDS ORDERED: ONDANSETRON 4 MG TAB.RAPDIS PO ONE (18:38)
[2017-12-04 18:48] VITALS: BP 128/73
--- NOTE | 2017-12-04 22:29 | EKG REPORT ---
SEVERITY:- OTHERWISE NORMAL ECG - SINUS RHYTHM LEFT AXIS DEVIATION : Confirmed by: Alexandra Maxwell MD 04-Dec-2017 22:28:13
== END 2017-12-04 18:45 | disposition home or self-care (01) ==
LOC: ER 16:24
DX: J40 Bronchitis, not specified as acute or chronic (principal); J02.9 Acute pharyngitis, unspecified; F17.210 Nicotine dependence, cigarettes, uncomplicated; R53.81 Other malaise
CPT/HCPCS: 93005; 99283; 71046; 93010; S0119

== ENCOUNTER 2019-02-08 21:40 | Emergency (ER) | payer SELFPAY ==
[2019-02-08] MEDS ORDERED: ONDANSETRON HCL INJ/PF 4 MG/2 ML SDV IV ONE (22:32)
[2019-02-08] MEDS ORDERED: NORMAL SALINE 1000 ML 1,000 ML IV ONE (22:32)
[2019-02-08] MEDS ORDERED: IPRATROPIUM/ALBUTEROL 0.5-2.5 MG/3 ML AMPUL NEB ONE (22:32)
--- NOTE | 2019-02-08 22:33 | ER Document Report ---
ED General - General Chief Complaint: Nausea/Vomiting/Diarrhea Stated Complaint: VOMITING Time Seen by Provider: 02/08/19 22:25 Notes: Patient is a 48-year-old female that comes emergency department for chief complaint of general sick symptoms for the past 4 to 5 days. She states it started with some sore throat and congestion but now she has a worsening cough and she has developed vomiting, she vomited 4 times today. She had some loose stools but none today. Denies fever. She smokes but she denies any daily medications or diagnosed medical problems. Only past medical history reported is ectopic removal. TRAVEL OUTSIDE OF THE [place] IN LAST 30 DAYS: No - Related Data Allergies/Adverse Reactions: No Known Allergies Allergy (Verified 12/04/17 16:25) Home Medications: denies Past Medical History - General Information source: Patient - Social History Smoking Status: Current Every Day Smoker Chew tobacco use (# tins/day): No Smoking Education Provided: Yes - <3 min Frequency of alcohol use: None Drug Abuse: Marijuana Family History: Reviewed & Not Pertinent Patient has suicidal ideation: No Patient has homicidal ideation: No Neurological Medical History: Reports: Hx Seizures - previous hx Renal/ Medical History: Denies: Hx Peritoneal Dialysis Past Surgical History: Reports: Hx Gynecologic Surgery - ECTOPIC PREG, L TUBE & OVARY REMOVED. - Immunizations Hx Diphtheria, Pertussis, Tetanus Vaccination: Yes Review of Systems - Review of Systems Constitutional: See HPI EENT: No symptoms reported Cardiovascular: No symptoms reported Respiratory: See HPI Gastrointestinal: See HPI Genitourinary: No symptoms reported Female Genitourinary: No symptoms reported Musculoskeletal: No symptoms reported Skin: No symptoms reported Hematologic/Lymphatic: No symptoms reported Neurological/Psychological: No symptoms reported Physical Exam - Vital signs Vitals: Temp Pulse Resp BP Pulse Ox 98.0 F 91 20 126/80 H 93 02/08/19 21:45 02/08/19 21:45 02/08/19 21:45 02/08/19 21:45 02/08/19 21:45 - Notes Notes: GENERAL: Alert, interacts well. No acute distress. HEAD: Normocephalic, atraumatic. EYES: Pupils equal, round, and reactive to light. Extraocular movements intact. ENT: Oral mucosa moist, tongue midline. Oropharynx unremarkable. Airway patent. Nares patent, no nasal septal hematoma, TM's intact. NECK: Full range of motion. Supple. Trachea midline. LUNGS: Scattered wheezes, occasional coughing episodes, unremarkable otherwise. HEART: Regular rate and rhythm. No murmur ABDOMEN: Soft, non-tender. Non-distended. EXTREMITIES: Moves all 4 extremities spontaneously. No edema, normal radial and dorsalis pedis pulses bilaterally. No cyanosis. BACK: no cervical, thoracic, lumbar midline tenderness. No saddle anesthesia, normal distal neurovascular exam. Moves all extremities in full range of motion. NEUROLOGICAL: Alert and oriented x3. Normal speech. Cranial nerves II through XII grossly intact. PSYCH: Normal affect, normal mood. SKIN: Warm, dry, normal turgor. No rashes or lesions noted. Course - Re-evaluation Re-evalutation: On my evaluation patient has occasional cough and expiratory wheezes, she was given DuoNeb and steroids, on reevaluation is completely resolved. She was given IV fluids and Zofran. After this her symptoms completely resolved. She has a soft benign abdomen. She does have leukocytosis of 15,000, slightly low potassium from the vomiting most likely, unremarkable urine. Chest x-ray negative for acute findings. Overall picture is most consistent with a viral syndrome, patient is doing much better after initiating treatments. I discussed with patient. She was given steroids for home with a dose from here, she will have an inhaler from here as well, she will be on antinausea medications and was provided with work release. Patient states understanding and agreement with plan, states she return if she worsens in any way. Stable at time of discharge. - Vital Signs Vital signs: Temp Pulse Resp BP Pulse Ox 99.0 F 82 16 107/56 L 97 02/09/19 02:25 02/09/19 02:25 02/09/19 02:25 02/09/19 02:25 02/09/19 02:25 - Laboratory Result Diagrams: 02/08/19 22:15 02/08/19 22:15 Laboratory results interpreted by me: 02/08/19 02/08/19 02/09/19 22:15 22:15 01:48 WBC 15.9 H Hgb 16.0 H Absolute Neuts (auto) 11.3 H Potassium 3.3 L Glucose 112 H Total Protein 8.5 H Urine Ketones 20 H Urine Blood SMALL H Urine Urobilinogen 2.0 H Discharge - Discharge Clinical Impression: Cough, Wheezing Nausea & vomiting Qualifiers: Vomiting type: unspecified Vomiting Intractability: non-intractable Qualified Code(s): R11.2 - Nausea with vomiting, unspecified Condition: Stable Disposition: HOME, SELF-CARE Additional Instructions: Your evaluation is most consistent with a viral upper respiratory infection and bronchitis. You have been treated with steroids, also use the albuterol inhaler and spacer for cough/wheezing. Take the Phenergan if needed for nausea. Drink plenty of fluids and rest. Symptoms should gradually resolve. Follow-up with primary care for additional evaluation management. Come back if you are worse including spiking fever, difficulty breathing, uncontrolled vomiting, or any other concerning or worsening symptoms. Prescriptions: Promethazine HCl [Phenergan 25 mg Tablet] 25 mg PO Q6H PRN #20 tablet PRN Reason: Albuterol Sulfate [Proair HFA Inhalation Aerosol 8.5 gm MDI] 2 puff IH Q4H PRN #1 mdi PRN Reason: Forms: Return to Work
[2019-02-08 22:55] LABS: ABSOLUTE BASOPHILS # (AUTO) 0.1 10^3/uL (0.0-0.2); ABSOLUTE LYMPHOCYTES (AUTO) 3.3 10^3/uL (0.5-4.7); ABSOLUTE MONOCYTES (AUTO) 1.2 10^3/uL (0.1-1.4); ABSOLUTE NEUT (AUTO) 11.3 10^3/uL (1.7-8.2); BASOPHILS % (AUTO) 0.5 % (0-2); EOSINOPHILS % (AUTO) 0.1 % (0-6); HEMATOCRIT 45.8 % (36.0-47.0); LYMPHOCYTES % (AUTO) 20.7 % (13-45); MEAN CORPUSCULAR VOLUME 91 fl (80-97); MONOCYTES % (AUTO) 7.8 % (3-13); PLATELET COUNT 349 10^3/uL (150-450); RED BLOOD COUNT 5.02 10^6/uL (3.72-5.28); RED CELL DISTRIBUTION WIDTH 13.2 % (11.5-14.0); SEGMENTED NEUTROPHILS % (AUTO) 70.9 % (42-78); TOTAL CELLS COUNTED % (AUTO) 100 %; WHITE BLOOD COUNT 15.9 10^3/uL (4.0-10.5)
[2019-02-08 23:08] LABS: ALBUMIN 4.8 g/dL (3.5-5.0); ALKALINE PHOSPHATASE 124 U/L (38-126); ANION GAP 15 (5-19); ASPARTATE AMINO TRANSFERASE 27 U/L (14-36); BILIRUBIN,DIRECT 0.2 mg/dL (0.0-0.4); BLOOD UREA NITROGEN 12 mg/dL (7-20); CALCIUM 10.1 mg/dL (8.4-10.2); CARBON DIOXIDE 25 mmol/L (22-30); CHLORIDE 99 mmol/L (98-107); GLUCOSE 112 mg/dL (75-110); POTASSIUM 3.3 mmol/L (3.6-5.0); TOTAL PROTEIN 8.5 g/dL (6.3-8.2)
--- NOTE | 2019-02-08 23:28 | RADIOLOGY REPORT (SQ) ---
XR CHEST 2 VIEWS EXAM DATE: 02/08/2019 10:31 PM [employer]OUNTAIN CLERK HISTORY: worsening cough x 5 days, shortness of breath. COMPARISON: 12/04/2017 FINDINGS: The cardiomediastinal silhouette is within normal limits. No pulmonary vascular congestion is seen. No focal consolidation, pleural effusion, or pneumothorax. The bony thorax is intact. IMPRESSION: No acute cardiopulmonary disease.
[2019-02-09] MEDS ORDERED: DEXAMETHASONE SOD PHOS INJ 10 MG/1 ML VIAL IV ONE (00:32)
[2019-02-09] MEDS ORDERED: FAMOTIDINE 20 MG TABLET PO ONE (00:32)
[2019-02-09] MEDS ORDERED: NORMAL SALINE 500 ML IV ONE (00:32)
[2019-02-09 02:04] LABS: APPEARANCE,URINE CLEAR; BILIRUBIN,URINE NEGATIVE (NEGATIVE); COLOR,URINE YELLOW; GLUCOSE, URINE NEGATIVE (NEGATIVE); KETONES,URINE 20 mg/dL (NEGATIVE); LEUKOCYTE ESTERASE,URINE NEGATIVE (NEGATIVE); NITRITE,URINE NEGATIVE (NEGATIVE); PROTEIN,URINE NEGATIVE (NEGATIVE); URINE SPECIFIC GRAVITY 1.005
[2019-02-09] MEDS ORDERED: ALBUTEROL SULFATE HFA (90 MCG/PUFF) 8 GM MDI (1 MDI/ER DISP) IH ONE (02:15)
[2019-02-09 02:26] VITALS: BP 107/56
== END 2019-02-09 02:31 | disposition home or self-care (01) ==
LOC: ER 21:40
DX: R11.2 Nausea with vomiting, unspecified (principal); R05 Cough; R06.2 Wheezing; F17.200 Nicotine dependence, unspecified, uncomplicated; F12.10 Cannabis abuse, uncomplicated; D72.829 Elevated white blood cell count, unspecified
CPT/HCPCS: 36415; 83690; 85025; 80053; 81001; 71046; J2405; J7030; J7040; J1100; J3490; J7620; 94640; 96361; 96374; 96375; 99283; 99406

== ENCOUNTER 2019-02-17 22:00 | Inpatient (IN) | payer OTHER ==
[2019-02-17] MEDS ORDERED: IPRATROPIUM/ALBUTEROL 0.5-2.5 MG/3 ML AMPUL NEB ONE (23:22)
--- NOTE | 2019-02-17 23:23 | ER Document Report ---
ED Medical Screen (RME) - General Chief Complaint: Chest Pain Stated Complaint: CHEST PAIN Time Seen by Provider: 02/17/19 23:17 Notes: Patient is a 48-year-old female who presents the emergency department with a chief complaint of bilateral chest pain. She was seen here about 6 days ago and was diagnosed with bronchitis. She left to go to [place] for Thanksgiving and went to the emergency department there and was diagnosed with pneumonia. She has been on doxycycline and patient states that she has not felt any better. Patient also has an albuterol inhaler at home. Prior to the symptoms, the patient smoked about half pack a day. Exam: Expiratory and expiratory wheezes noted throughout all lung [place]. I have greeted and performed a rapid initial assessment of this patient. A comprehensive ED assessment and evaluation of the patient, analysis of test results and completion of medical decision making process will be conducted by an additional ED providers. TRAVEL OUTSIDE OF THE [place] IN LAST 30 DAYS: No - Related Data Allergies/Adverse Reactions: No Known Allergies Allergy (Verified 12/04/17 16:25) Home Medications: doxycycline. viscous lidocaine. inhaler Past Medical History - Social History Family history: Reviewed & Not Pertinent Neurological Medical History: Reports: Hx Seizures - previous hx Renal/ Medical History: Denies: Hx Peritoneal Dialysis Past Surgical History: Reports: Hx Gynecologic Surgery - ECTOPIC PREG, L TUBE & OVARY REMOVED. - Immunizations Hx Diphtheria, Pertussis, Tetanus Vaccination: Yes Physical Exam - Vital signs Vitals: Temp Pulse Resp BP Pulse Ox 98.4 F 97 20 133/80 H 95 02/17/19 22:39 02/17/19 22:39 02/17/19 22:39 02/17/19 22:39 02/17/19 22:39 Course - Vital Signs Vital signs: Temp Pulse Resp BP Pulse Ox 98.4 F 97 20 133/80 H 95 02/17/19 23:14 02/17/19 23:14 02/17/19 23:14 02/17/19 23:14 02/17/19 23:14
[2019-02-18 00:13] LABS: HEMATOCRIT 44.4 % (36.0-47.0); HEMOGLOBIN 15.3 g/dL (12.0-15.5); MEAN CORPUSCULAR HEMOGLOBIN 31.7 pg (27.0-33.4); MEAN CORPUSCULAR HGB CONC 34.6 g/dL (32.0-36.0); MEAN CORPUSCULAR VOLUME 92 fl (80-97); PLATELET COUNT 563 10^3/uL (150-450); RED BLOOD COUNT 4.84 10^6/uL (3.72-5.28); RED CELL DISTRIBUTION WIDTH 13.4 % (11.5-14.0); WHITE BLOOD COUNT 25.7 10^3/uL (4.0-10.5)
[2019-02-18 00:25] LABS: ALKALINE PHOSPHATASE 115 U/L (38-126); ANION GAP 15 (5-19); ASPARTATE AMINO TRANSFERASE 20 U/L (14-36); BILIRUBIN,DIRECT 0.3 mg/dL (0.0-0.4); BILIRUBIN,TOTAL 0.7 mg/dL (0.2-1.3); BLOOD UREA NITROGEN 12 mg/dL (7-20); CARBON DIOXIDE 27 mmol/L (22-30); CHLORIDE 97 mmol/L (98-107); GLUCOSE 116 mg/dL (75-110); POTASSIUM 3.8 mmol/L (3.6-5.0); TOTAL PROTEIN 8.1 g/dL (6.3-8.2)
--- NOTE | 2019-02-18 00:33 | EKG REPORT ---
SEVERITY:- ABNORMAL ECG - SINUS RHYTHM LAD, CONSIDER LEFT ANTERIOR FASCICULAR BLOCK ABNORMAL T, CONSIDER ISCHEMIA, ANTERIOR LEADS : Confirmed by: Alexandra Maxwell MD 18-Feb-2019 00:32:41
[2019-02-18 00:39] LABS: ABSOLUTE LYMPHOCYTES# (MANUAL) 1.3 10^3/uL (0.5-4.7); BAND NEUTROPHILS % (MANUAL) 2 % (3-5); BASOPHILS % (MANUAL) 0 % (0-2); EOSINOPHILS % (MANUAL) 0 % (0-6); LYMPHOCYTES % (MANUAL) 5 % (13-45); MONOCYTES % (MANUAL) 0 % (3-13); SEGMENTED NEUTROPHILS % (MAN) 93 % (42-78); TOTAL CELLS COUNTED 100
[2019-02-18 00:40] LABS: OVALOCYTES SLIGHT; PLATELET COMMENT INCREASED; PLATELET LARGE PRESENT; POIKILOCYTOSIS SLIGHT; TEAR DROP CELLS SLIGHT; TOXIC GRANULATION SLIGHT; TOXIC VACUOLATION PRESENT
[2019-02-18] MEDS ORDERED: IPRATROPIUM/ALBUTEROL 0.5-2.5 MG/3 ML AMPUL NEB ONE (01:27)
--- NOTE | 2019-02-18 02:20 | RADIOLOGY REPORT (SQ) ---
EXAM DESCRIPTION: XR CHEST 1 VIEW COMPLETED DATE/TME: 02/17/2019 23:21 CLINICAL HISTORY: 48 years Female, chest pain COMPARISON: 02/08/19 NUMBER OF VIEWS/TECHNIQUE: 1/AP FINDINGS: Increased emphysematous lung volume, small atelectasis or scar bilateral lower lobes, normal cardiac silhouette, and intact bony thorax. IMPRESSION: No acute cardiopulmonary findings.
--- NOTE | 2019-02-18 04:06 | ER Document Report ---
ED General - General Chief Complaint: Chest Pain Stated Complaint: CHEST PAIN Time Seen by Provider: 02/17/19 23:17 Mode of Arrival: Ambulatory Information source: Patient TRAVEL OUTSIDE OF THE [place] IN LAST 30 DAYS: No - HPI Onset: Other - over the last 2 weeks but worse over the last several days. Onset/Duration: Gradual Quality of pain: Pressure, Sharp Severity: Moderate Pain Level: 3 Similar symptoms previously: Yes Recently seen / treated by doctor: Yes - Patient seen in this ER on 02/08 and then several days later at ER in [place] Notes: 48 year old female with no known PMH here for left sided chest pain and heaviness for the last 2 weeks which has acutely worsened in the last 2 days. The patient was seen in this ER on 02/08 and she had a chest xray then showing no acute process. She was told she had a viral bronchitis then. The patient apparently went to an ER in [place] after her ER visit here and she had an Xray there showing a left sided pneumonia. The patient was DCed on a course of Doxycycline which she is taking now. The patient drove down to [place] and back in the last week. The patient denies fevers, chills, sweats, but she is having a mildly productive cough. - Related Data Allergies/Adverse Reactions: No Known Allergies Allergy (Verified 12/04/17 16:25) Home Medications: doxycycline. viscous lidocaine. inhaler Past Medical History - Social History Smoking Status: Current Every Day Smoker Frequency of alcohol use: Social Drug Abuse: None Family History: Reviewed & Not Pertinent Patient has suicidal ideation: No Patient has homicidal ideation: No Pulmonary Medical History: Reports: Hx Pneumonia Neurological Medical History: Reports: Hx Seizures - previous hx Renal/ Medical History: Denies: Hx Peritoneal Dialysis Past Surgical History: Reports: Hx Gynecologic Surgery - ECTOPIC PREG, L TUBE & OVARY REMOVED. - Immunizations Hx Diphtheria, Pertussis, Tetanus Vaccination: Yes Review of Systems - Review of Systems Constitutional: Weakness EENT: No symptoms reported Cardiovascular: Chest pain Respiratory: Cough, Hurts to breathe, Short of breath Gastrointestinal: No symptoms reported Genitourinary: No symptoms reported Female Genitourinary: No symptoms reported Musculoskeletal: No symptoms reported Skin: No symptoms reported Hematologic/Lymphatic: No symptoms reported Neurological/Psychological: No symptoms reported Physical Exam - Vital signs Vitals: Temp Pulse Resp BP Pulse Ox 98.4 F 97 20 133/80 H 95 02/17/19 22:39 02/17/19 22:39 02/17/19 22:39 02/17/19 22:39 02/17/19 22:39 - Notes Notes: GENERAL: Well-appearing, well-nourished and in no acute distress. HEAD: Atraumatic, normocephalic. EYES: Pupils equal round and reactive to light, extraocular movements intact, sclera anicteric, conjunctiva are normal. ENT: Nares patent, oropharynx clear without exudates. Moist mucous membranes. NECK: Normal range of motion, supple without lymphadenopathy or JVD. LUNGS: Breath sounds clear to auscultation bilaterally and equal. No wheezes rales or rhonchi. HEART: Regular rate and rhythm without murmurs, rubs or gallops. ABDOMEN: Soft, nontender, normoactive bowel sounds. No guarding, no rebound. No masses appreciated. EXTREMITIES: Normal range of motion, no pitting or edema. No clubbing or cyanosis. NEUROLOGICAL: Cranial nerves II through XII grossly intact. Normal speech, normal gait. PSYCH: Normal mood, normal affect. SKIN: Warm, Dry, normal turgor, no rashes or lesions noted. Course - Vital Signs Vital signs: Temp Pulse Resp BP Pulse Ox 98.4 F 97 26 H 106/80 97 02/18/19 01:40 02/17/19 23:14 02/18/19 05:01 02/18/19 05:00 02/18/19 05:01 - Laboratory Result Diagrams: 02/17/19 23:30 02/17/19 23:30 Laboratory results interpreted by me: 02/17/19 02/17/19 23:30 23:30 WBC 25.7 H Plt Count 563 H Seg Neuts % (Manual) 93 H Band Neutrophils % 2 L Lymphocytes % (Manual) 5 L Monocytes % (Manual) 0 L Abs Neuts (Manual) 24.4 H Abs Monocytes (Manual) 0.0 L Chloride 97 L Glucose 116 H - EKG Interpretation by Ri EKG shows normal: Sinus rhythm, [place] - normal Rate: Normal Rhythm: NSR When compared to previous EKG there are: Changes noted - T wave inversions in V2-V4 Discharge - Discharge Clinical Impression: Pneumonia Qualifiers: Pneumonia type: due to unspecified organism Laterality: unspecified laterality Lung location: unspecified part of lung Qualified Code(s): J18.9 - Pneumonia, unspecified organism Condition: Fair Disposition: ADMITTED INPATIENT Admitting Provider: Gabriel (Hospitalist) Unit Admitted: Telemetry
[2019-02-18 05:24] LABS: CREATINE KINASE MB 0.25 ng/mL (<4.55)
[2019-02-18 05:28] LABS: TROPONIN I < 0.012 ng/mL
--- NOTE | 2019-02-18 05:32 | RADIOLOGY REPORT (SQ) ---
CT angiogram chest with contrast on 02/18/2019 at 4:18 AM CLINICAL INDICATION: Left-sided chest pain and shortness of breath TECHNIQUE: Multiple axial images are obtained throughout the chest following the administration of IV contrast. Computer generated 3D reconstructions/MIPS were performed. This exam was performed according to our departmental dose-optimization program, which includes automated exposure control, adjustment of the mA and/or kV according to patient size and/or use of iterative reconstruction technique. Total DLP is 442.66 mGy*cm. COMPARISON: None FINDINGS: There is no thoracic aortic aneurysm or dissection. There is no pleural or pericardial effusion. There is no thoracic adenopathy. There are no filling defects within the pulmonary arteries to suggest pulmonary embolus. Emphysematous changes of the lungs are noted. There is bronchiectasis in the bilateral lower lungs. There is some bronchial wall thickening suggesting bronchitis. There is some mucus plugging in the distal bilateral lower lobe bronchi. There is peripheral likely atelectasis in the left greater than right lower lobes distal to the mucus plugging, cannot exclude component of early pneumonia but favor this to be predominantly atelectasis. The lungs are otherwise clear. No bony abnormality is noted. IMPRESSION: 1. No evidence of pulmonary embolus. 2. Left greater than right lower lobe opacities favored to be atelectasis but cannot exclude early pneumonia. 3. Bronchial wall thickening suggesting bronchitis with some bilateral lower lobe mucus plugging. 4. Emphysema.
[2019-02-18] MEDS ORDERED: IPRATROPIUM/ALBUTEROL 0.5-2.5 MG/3 ML AMPUL NEB PRN (05:40)
[2019-02-18] MEDS ORDERED: HYDROCODONE BIT/HOMATROPINE SYRUP 5 ML UDCUP PO PRN (05:40)
[2019-02-18] MEDS ORDERED: GUAIFENESIN SYRP 200 MG/10 ML UDC PO PRN (05:40)
[2019-02-18] MEDS: HEPARIN SOD (PORCINE) 5,000 UNIT/ML 1 ML VIAL SUBCUT SCH ×3 (05:57→21:19)
[2019-02-18] MEDS: CEFTRIAXONE 1 GM/D5W RTU 1 GM/50 ML RTUPB IV SCH (05:58)
--- NOTE | 2019-02-18 06:36 | PDOC H&P ---
History of Present Illness Admission Date/PCP: 02/18/19 05:58 Patient complains of: Shortness of breath and cough History of Present Illness: PATRICIA SANTA is a 48 year old female with a past medical history of chronic bronchitis and tobacco dependence. She presents with 2 weeks of intermittently productive cough and shortness of breath prompting her to seek evaluation in the emergency department twice in the last 12 days. She is treated with Levaquin followed by doxycycline without significant improvement she returns to the emergency department and found to have left lower lobe infiltrate by CT and leukocytosis. Failing outpatient treatment she receives empiric antibiotics, breathing treatments and supplemental oxygen and then referred to the hosp italist for admission. Past Medical History Pulmonary Medical History: Reports: Pneumonia Neurological Medical History: Reports: Seizures - previous hx Psychiatric Medical History: Reports: Tobacco Dependency Social History Information Source: Patient Smoking Status: Current Every Day Smoker Number of Years Smokin Frequency of Alcohol Use: Rare Drugs: Marijuana - Advance Directive Resuscitation Status: Full Code Family History Family History: COPD, Hypertension Parental Family History Reviewed: Yes Children Family History Reviewed: Yes Sibling(s) Family History Reviewed.: Yes Medication/Allergy Home Medications: Albuterol Sulfate [Ventolin Hfa] 2 puff IH Q4HP PRN #17 gm 04/05/13 Azithromycin [Zithromax 250 mg Tablet] 250 mg PO DAILY 4 Days tablet 04/05/13 Ondansetron HCl [Zofran 4 mg Tablet] 1 - 2 tab PO Q6 PRN #15 tablet 04/05/13 Promethazine HCl [Phenergan 25 mg Supp.rect] 1 supp RI Q6H #12 supp.rect 04/05/13 Azithromycin [Zithromax 250 mg Tablet] 250 mg PO ASDIR PRN #6 tablet 05/13/16 Promethazine HCl [Phenergan 25 mg Tablet] 25 mg PO Q8H PRN #10 tablet 05/13/16 Hydrocodone Bit/Homatropine [Hycodan 5-1.5 mg Tablet] 1 tab PO Q4HP PRN #24 tab let 05/15/16 Levofloxacin [Levaquin 750 mg Tablet] 750 mg PO DAILY #5 tablet 05/15/16 Prednisone [Deltasone 20 mg Tablet] 3 tab PO DAILY 5 Days tablet 05/15/16 Ondansetron [Zofran Odt 4 mg Tablet] 1 - 2 tab PO Q4H PRN #15 tab.rapdis 05/20/16 Ibuprofen [Motrin 600 mg Tablet] 600 mg PO Q8HP PRN #30 tablet 03/31/17 Albuterol Sulfate [Proair HFA Inhalation Aerosol 8.5 gm MDI] 2 puff IH Q4H PRN # 1 mdi 12/04/17 Azithromycin [Zithromax 250 mg Tablet] 250 mg PO ASDIR PRN #6 tablet 12/04/17 Guaifenesin/Codeine Phos [Robitussin-AC Syrup 59 ml] 5 ml PO QIDP PRN #60 ml 12/04/17 Ondansetron [Zofran Odt 4 mg Tablet] 1 - 2 tab PO Q4HP PRN #10 tab.rapdis 12/04/17 Albuterol Sulfate [Proair HFA Inhalation Aerosol 8.5 gm MDI] 2 puff IH Q4H PRN #1 mdi 02/09/19 Promethazine HCl [Phenergan 25 mg Tablet] 25 mg PO Q6H PRN #20 tablet 02/09/19 Allergies/Adverse Reactions: No Known Allergies Allergy (Verified 12/04/17 16:25) Review of Systems Constitutional: ABSENT: chills, fever(s), headache(s), weight gain, weight loss Eyes: ABSENT: visual disturbances Ears: ABSENT: hearing changes Cardiovascular: ABSENT: chest pain, dyspnea on exertion, edema, orthropnea, palpitations Respiratory: PRESENT: as per HPI, cough, dyspnea, sputum. ABSENT: hemoptysis Gastrointestinal: ABSENT: abdominal pain, constipation, diarrhea, hematemesis, hematochezia, nausea, vomiting Genitourinary: ABSENT: dysuria, hematuria Musculoskeletal: ABSENT: joint swelling Integumentary: ABSENT: rash, wounds Neurological: ABSENT: abnormal gait, abnormal speech, confusion, dizziness, focal weakness, syncope Psychiatric: ABSENT: anxiety, depression, homidical ideation, suicidal ideation Endocrine: ABSENT: cold intolerance, heat intolerance, polydipsia, polyuria Hematologic/Lymphatic: ABSENT: easy bleeding, easy bruising Physical Exam Vital Signs: Temp Pulse Resp BP Pulse Ox 98.4 F 97 26 H 106/80 97 02/18/19 01:40 02/17/19 23:14 02/18/19 05:01 02/18/19 05:00 02/18/19 05:01 Intake & Output 02/16/19 02/17/19 02/18/19 11:59 11:59 11:59 Weight 50.5 kg General appearance: PRESENT: cooperative, mild distress, thin, well-developed, well-nourished Head exam: PRESENT: atraumatic, normocephalic Eye exam: PRESENT: conjunctiva pink, EOMI, PERRLA. ABSENT: scleral icterus Ear exam: PRESENT: normal external ear exam Mouth exam: PRESENT: moist, tongue midline Neck exam: PRESENT: full ROM. ABSENT: JVD, lymphadenopathy Respiratory exam: PRESENT: accessory muscle use, crackles, decreased breath sounds, prolonged expiratory phas, retraction, rhonchi, symmetrical, tachypnea Cardiovascular exam: PRESENT: RRR. ABSENT: diastolic murmur, rubs, systolic murmur Pulses: PRESENT: normal dorsalis pedis pul Vascular exam: PRESENT: normal capillary refill GI/Abdominal exam: PRESENT: normal bowel sounds, soft. ABSENT: distended, guarding, mass, organolmegaly, rebound, tenderness Rectal exam: PRESENT: deferred Extremities exam: PRESENT: full ROM. ABSENT: calf tenderness, clubbing, pedal edema Neurological exam: PRESENT: alert, awake, oriented to person, oriented to place, oriented to time, oriented to situation, CN II-XII grossly intact. ABSENT: motor sensory deficit Psychiatric exam: PRESENT: appropriate affect, normal mood. ABSENT: homicidal ideation, suicidal ideation Skin exam: PRESENT: dry, intact, warm. ABSENT: cyanosis, rash Results Laboratory Results: 02/17/19 23:30 02/17/19 23:30 02/17/19 02/17/19 23:30 23:30 WBC 25.7 H RBC 4.84 Hgb 15.3 Hct 44.4 MCV 92 MCH 31.7 MCHC 34.6 RDW 13.4 Plt Count 563 H Seg Neutrophils % Not Reportable Sodium 138.8 Potassium 3.8 Chloride 97 L Carbon Dioxide 27 Anion Gap 15 BUN 12 Creatinine 0.64 Est GFR ( Amer) > 60 Glucose 116 H Calcium 10.0 Total Bilirubin 0.7 AST 20 Alkaline Phosphatase 115 Total Protein 8.1 Albumin 4.0 02/17/19 02/17/19 23:30 23:30 Creatine Kinase 40 CK-MB (CK-2) 0.25 Troponin I < 0.012 Impressions: Chest X-Ray 02/17/19 23:21 IMPRESSION: No acute cardiopulmonary findings. Chest/Abdomen CTA 02/18/19 04:02 IMPRESSION: 1. No evidence of pulmonary embolus. 2. Left greater than right lower lobe opacities favored to be atelectasis but cannot exclude early pneumonia. 3. Bronchial wall thickening suggesting bronchitis with some bilateral lower lobe mucus plugging. 4. Emphysema. Assessment and Plan - Diagnosis (1) Pneumonia Qualifiers: Pneumonia type: due to unspecified organism Laterality: unspecified laterality Lung location: unspecified part of lung Qualified Code(s): J18.9 - Pneumonia, unspecified organism Is this a current diagnosis for this admission?: Yes Plan: Pneumonia care set, incentive spirometry, flutter valve, follow-up CBC and blood culture (2) COPD exacerbation Is this a current diagnosis for this admission?: Yes Plan: Please see #1 (3) Tobacco abuse Is this a current diagnosis for this admission?: Yes Plan: 15 minutes of tobacco cessation counseling, declines nicotine replacement, (4) Substance abuse Is this a current diagnosis for this admission?: Yes Plan: Counseling and education - Time Time Spent with patient: 25-34 minutes - Inpatient Certification Medical Necessity: Need Close Monitoring Due to Risk of Patient Decompensation
[2019-02-18] MEDS: IPRATROPIUM/ALBUTEROL 0.5-2.5 MG/3 ML AMPUL NEB SCH ×3 (09:24→23:33)
[2019-02-18] MEDS: FLUTICASONE NASAL SPRAY 50 MCG/SPRY 120 SPRAY/16 GM NASL SCH ×2 (11:01→21:20)
[2019-02-18] MEDS: AZITHROMYCIN 500 MG in DEXTROSE 5%-WATER 250 ML IV SCH (11:08)
[2019-02-18] MEDS ORDERED: PROMETHAZINE HCL INJ 25 MG/1 ML VIAL IV PRN (14:32)
[2019-02-18] MEDS ORDERED: ONDANSETRON HCL INJ/PF 4 MG/2 ML SDV IV PRN (14:32)
[2019-02-18] MEDS ORDERED: ONDANSETRON HCL INJ/PF 4 MG/2 ML SDV ONE (14:54)
[2019-02-18] MEDS ORDERED: INFLUENZA QUAD (6MOS+) 2019-20 VAC 0.5 ML SYR IM ONE (18:44)
--- NOTE | 2019-02-18 19:19 | Progress Note ---
Provider Note Provider Note: The patient is a 48-year-old female with a past medical history of chronic bronchitis and tobacco dependence with continuous use who was admitted approximately 5 AM this morning by the [facility] for pneumonia with COPD exacerbation. Nursing notes, vital signs, laboratory results, imaging reports, and orders reviewed. Agree with the plan of care as established by the previous provider. In addition, will obtain blood and sputum cultures. I have also added PRN Zofran and Phenergan for report of nausea. Patient continues on azithromycin and ceftriaxone for community-acquired pneumonia, supplemental oxygen as needed, scheduled and as needed nebulizer treatments. Will consider follow-up imaging and ABG if the patient is not significantly improved following 24 hours of the above-mentioned therapy.
[2019-02-19] MEDS: HEPARIN SOD (PORCINE) 5,000 UNIT/ML 1 ML VIAL SUBCUT SCH ×3 (05:47→21:18)
[2019-02-19] MEDS: CEFTRIAXONE 1 GM/D5W RTU 1 GM/50 ML RTUPB IV SCH (05:47)
[2019-02-19 06:25] LABS: ABSOLUTE BASOPHILS # (AUTO) 0.1 10^3/uL (0.0-0.2); ABSOLUTE EOSINOPHILS # (AUTO) 0.1 10^3/uL (0.0-0.6); ABSOLUTE LYMPHOCYTES (AUTO) 2.7 10^3/uL (0.5-4.7); ABSOLUTE MONOCYTES (AUTO) 0.8 10^3/uL (0.1-1.4); ABSOLUTE NEUT (AUTO) 4.1 10^3/uL (1.7-8.2); BASOPHILS % (AUTO) 0.7 % (0-2); EOSINOPHILS % (AUTO) 1.1 % (0-6); HEMATOCRIT 39.8 % (36.0-47.0); HEMOGLOBIN 13.8 g/dL (12.0-15.5); LYMPHOCYTES % (AUTO) 35.3 % (13-45); MEAN CORPUSCULAR HEMOGLOBIN 31.9 pg (27.0-33.4); MEAN CORPUSCULAR HGB CONC 34.5 g/dL (32.0-36.0); MEAN CORPUSCULAR VOLUME 92 fl (80-97); MONOCYTES % (AUTO) 10.9 % (3-13); PLATELET COUNT 521 10^3/uL (150-450); RED BLOOD COUNT 4.31 10^6/uL (3.72-5.28); RED CELL DISTRIBUTION WIDTH 13.4 % (11.5-14.0); TOTAL CELLS COUNTED % (AUTO) 100 %; WHITE BLOOD COUNT 7.8 10^3/uL (4.0-10.5)
[2019-02-19 07:00] LABS: ANION GAP 11 (5-19); BLOOD UREA NITROGEN 10 mg/dL (7-20); CALCIUM 9.4 mg/dL (8.4-10.2); CARBON DIOXIDE 32 mmol/L (22-30); CHLORIDE 99 mmol/L (98-107); GLUCOSE 91 mg/dL (75-110)
[2019-02-19 07:04] LABS: POTASSIUM 3.8 mmol/L (3.6-5.0)
[2019-02-19] MEDS: IPRATROPIUM/ALBUTEROL 0.5-2.5 MG/3 ML AMPUL NEB SCH ×2 (07:51→16:01)
[2019-02-19] MEDS: ACETAMINOPHEN 325 MG TABLET PO PRN (08:55)
[2019-02-19] MEDS: AZITHROMYCIN 500 MG in DEXTROSE 5%-WATER 250 ML IV SCH (10:49)
[2019-02-19] MEDS: FLUTICASONE NASAL SPRAY 50 MCG/SPRY 120 SPRAY/16 GM NASL SCH ×2 (10:49→21:18)
--- NOTE | 2019-02-19 17:45 | PDOC PROGRESS REPORT ---
Subjective Progress Note for:: 02/19/19 Subjective:: The patient is a 48-year-old female with a past medical history of chronic bronchitis and tobacco dependence with continuous use who was admitted 01/19/2019 for pneumonia and a COPD exacerbation. The patient was seen on morning rounds. She was found resting in bed, c omfortably, on room air. She is noted to have continued work of breathing and is speaking 3-4 sentences. However, she reports that this is significantly improved from yesterday. She does continue to have dyspnea at rest but significantly worsens with minimal activity. She also has a productive cough today. She denies fever, chills, chest pain, palpitations, orthopnea, abdominal pain, vomiting. She reports that her nausea is much improved today and she tolerated breakfast fine. She has no other questions or concerns at this time. No concerns per nursing. Reason For Visit: PNUEMONIA Physical Exam Vital Signs: Temp Pulse Resp BP Pulse Ox 97.8 F 68 24 H 105/68 97 02/19/19 12:00 02/19/19 12:00 02/19/19 12:00 02/19/19 12:00 02/19/19 12:00 Intake & Output 02/18/19 02/19/19 02/20/19 06:59 06:59 06:59 Intake Total 50 750 250 Output Total 0 Balance 50 750 250 Weight 50.5 kg 50.9 kg General appearance: PRESENT: no acute distress, cooperative, well-developed, well-nourished Head exam: PRESENT: atraumatic, normocephalic Eye exam: PRESENT: conjunctiva pink, EOMI, PERRLA. ABSENT: scleral icterus Ear exam: PRESENT: normal external ear exam Mouth exam: PRESENT: moist, tongue midline Respiratory exam: PRESENT: rhonchi, symmetrical, tachypnea, unlabored. ABSENT: rales, wheezes Cardiovascular exam: PRESENT: RRR, +S1, +S2. ABSENT: diastolic murmur, rubs, systolic murmur Pulses: PRESENT: normal dorsalis pedis pul Vascular exam: PRESENT: normal capillary refill GI/Abdominal exam: PRESENT: normal bowel sounds, soft. ABSENT: distended, guarding, mass, organolmegaly, rebound, tenderness Rectal exam: PRESENT: deferred Extremities exam: PRESENT: full ROM. ABSENT: calf tenderness, clubbing, pedal edema Neurological exam: PRESENT: alert, awake, oriented to person, oriented to place, oriented to time, oriented to situation, CN II-XII grossly intact. ABSENT: motor sensory deficit Psychiatric exam: PRESENT: appropriate affect, normal mood. ABSENT: homicidal ideation, suicidal ideation Skin exam: PRESENT: dry, intact, warm. ABSENT: cyanosis, rash Results Laboratory Results: 02/19/19 05:29 02/19/19 05:29 02/19/19 02/19/19 05:29 05:29 WBC 7.8 RBC 4.31 Hgb 13.8 Hct 39.8 MCV 92 MCH 31.9 MCHC 34.5 RDW 13.4 Plt Count 521 H Seg Neutrophils % 52.0 Sodium 141.7 Potassium 3.8 Chloride 99 Carbon Dioxide 32 H Anion Gap 11 BUN 10 Creatinine 0.77 Est GFR ( Amer) > 60 Glucose 91 Calcium 9.4 02/17/19 02/17/19 23:30 23:30 Creatine Kinase 40 CK-MB (CK-2) 0.25 Troponin I < 0.012 Impressions: Chest X-Ray 02/17/19 23:21 IMPRESSION: No acute cardiopulmonary findings. Chest/Abdomen CTA 02/18/19 04:02 IMPRESSION: 1. No evidence of pulmonary embolus. 2. Left greater than right lower lobe opacities favored to be atelectasis but cannot exclude early pneumonia. 3. Bronchial wall thickening suggesting bronchitis with some bilateral lower lobe mucus plugging. 4. Emphysema. Assessment and Plan - Diagnosis (1) Pneumonia Qualifiers: Pneumonia type: due to unspecified organism Laterality: unspecified laterality Lung location: unspecified part of lung Qualified Code(s): J18.9 - Pneumonia, unspecified organism Is this a current diagnosis for this admission?: Yes Plan: The patient is admitted to the medical floor on continuous cardiac telemetry. She is provided supplemental oxygen as needed to maintain saturations greater than 89%. She is empirically placed on IV azithromycin and Rocephin for treatment of a com munity-acquired pneumonia. She is provided scheduled and as needed nebulizer treatments. Daily Flonase. Robitussin as needed. Pulmonary toilet is encouraged with incentive spirometer and flutter valve. Patient is encouraged to ambulate today. (2) COPD exacerbation Is this a current diagnosis for this admission?: Yes Plan: Improved; now maintaining oxygen saturations on room air. Management as above. (3) Substance abuse Is this a current diagnosis for this admission?: Yes Plan: Counseling and education (4) Tobacco abuse Is this a current diagnosis for this admission?: Yes Plan: Smoking cessation encouraged. Nicotine replacement offered and declined. (5) Leukocytosis Is this a current diagnosis for this admission?: Yes Plan: Resolved; secondary to #1. - Time Time Spent with patient: 25-34 minutes Medications reviewed and adjusted accordingly: Yes Anticipated discharge: Home Within: within 48 hours
[2019-02-20 00:23] VITALS: BP 120/74
[2019-02-20] MEDS: IPRATROPIUM/ALBUTEROL 0.5-2.5 MG/3 ML AMPUL NEB SCH ×2 (00:32→07:44)
[2019-02-20] MEDS: CEFTRIAXONE 1 GM/D5W RTU 1 GM/50 ML RTUPB IV SCH (05:28)
[2019-02-20] MEDS: HEPARIN SOD (PORCINE) 5,000 UNIT/ML 1 ML VIAL SUBCUT SCH (05:28)
[2019-02-20] MEDS: ACETAMINOPHEN 325 MG TABLET PO PRN (05:32)
[2019-02-20] MEDS: AZITHROMYCIN 500 MG in DEXTROSE 5%-WATER 250 ML IV SCH (09:01)
[2019-02-20] MEDS: FLUTICASONE NASAL SPRAY 50 MCG/SPRY 120 SPRAY/16 GM NASL SCH (09:01)
[2019-02-20] MEDS ORDERED: HYDROCODONE BIT/HOMATROPINE 5-1.5 MG TABLET PO PRN (13:02)
--- NOTE | 2019-02-22 18:56 | PDOC DISCHARGE SUMMARY ---
Impression - Admit/DC Date/PCP Admission Date/Primary Care Provider: 02/18/19 05:58 Discharge Date: 02/20/19 - Discharge Diagnosis (1) Pneumonia Is this a current diagnosis for this admission?: Yes (2) COPD exacerbation Is this a current diagnosis for this admission?: Yes (3) Substance abuse Is this a current diagnosis for this admission?: Yes (4) Tobacco abuse Is this a current diagnosis for this admission?: Yes (5) Leukocytosis Is this a current diagnosis for this admission?: Yes - Additional Information Resuscitation Status: Full Code Discharge Diet: Cardiac Discharge Activity: Activity As Tolerated, Balance Activity w/Rest, Slowly Increase Activity Referrals: [facility] [Outside] - 02/24/19 3:30 pm (Follow up within 1 week.) Prescriptions: Albuterol Sulfate [Albuterol Sulfate Hfa] 1 - 2 inh IH Q4HP PRN #1 hfa.[email or web address] PRN Reason: Shortness Of Breath Azithromycin 250 mg PO DAILY #4 tablet Fluticasone Propionate [Flonase Nasal Costilla 50 Mcg/Costilla 16 gm] 2 spray NASL Q12 #1 spray.pump Hydrocodone Bit/Homatropine [Hycodan Syrup 5-1.5 mg/5 ml Ud Cup] 5 ml PO Q6HP PRN #12 udc PRN Reason: Home Medications: Acetaminophen [Tylenol 325 mg Tablet] 650 mg PO Q4HP PRN tablet 02/20/19 Albuterol Sulfate [Albuterol Sulfate Hfa] 1 - 2 inh IH Q4HP PRN #1 hfa.aer.ad 02/20/19 Azithromycin 250 mg PO DAILY #4 tablet 02/20/19 Fluticasone Propionate [Flonase Nasal [place] 50 Mcg/Costilla 16 gm] 2 spray NASL Q12 #1 spray.pump 02/20/19 Guaifenesin [Robitussin Syrup 200 mg/10 ml Ud Cup] 200 mg PO Q4HP PRN udc 02/20/19 Hydrocodone Bit/Homatropine [Hycodan Syrup 5-1.5 mg/5 ml Ud Cup] 5 ml PO Q6HP PRN #12 udc 02/20/19 History of Present Illiness History of Present Illness: Per H&P by Dr. Rios: PATRICIA SANTA is a 48 year old female with a past medical history of chronic bronchitis and tobacco dependence. She presents with 2 weeks of intermittently productive cough and shortness of breath prompting her to seek evaluation in the emergency department twice in the last 12 days. She is treated with Levaquin followed by doxycycline without significant improvement she returns to the emergency department and found to have left lower lobe infiltrate by CT and leukocytosis. Failing outpatient treatment she receives empiric antibiotics, breathing treatments and supplemental oxygen and then referred to the hospitalist for admission. Hospital Course Hospital Course: The patient was admitted to the medical floor. She was empirically placed on IV azithromycin and Rocephin for treatment of community-acquired pneumonia. She was supported with supplemental oxygen, scheduled as needed nebulizer treatments, Flonase, Robitussin, and pulmonary toilet. The patient's symptoms rapidly improved. She is now maintaining oxygen saturations while ambulatory and requesting discharge home. Patient is discharged in stable condition. She is advised to stop smoking. She is instructed to complete her course of antibiotics. Take all other medications as prescribed. Continue pulmonary toilet at home (provided IS and Flutter valve). Follow up with primary care provider within 1 week. Return to the emergency department as needed for concerning symptoms. Physical Exam Vital Signs: Temp Pulse Resp BP Pulse Ox 98.9 F 61 16 120/74 98 02/20/19 13:21 02/20/19 13:21 02/20/19 13:21 02/20/19 13:21 02/20/19 13:21 Intake & Output 02/21/19 02/22/19 02/23/19 06:59 06:59 06:59 Intake Total 250 Balance 250 General appearance: PRESENT: no acute distress, well-developed, well-nourished Head exam: PRESENT: atraumatic, normocephalic Eye exam: PRESENT: conjunctiva pink, EOMI, PERRLA. ABSENT: scleral icterus Ear exam: PRESENT: normal external ear exam Mouth exam: PRESENT: moist, tongue midline Neck exam: ABSENT: carotid bruit, JVD, lymphadenopathy, thyromegaly Respiratory exam: PRESENT: clear to auscultation pamela. ABSENT: rales, rhonchi, wheezes Cardiovascular exam: PRESENT: RRR. ABSENT: diastolic murmur, rubs, systolic murmur Pulses: PRESENT: normal dorsalis pedis pul Vascular exam: PRESENT: normal capillary refill GI/Abdominal exam: PRESENT: normal bowel sounds, soft. ABSENT: distended, guarding, mass, organolmegaly, rebound, tenderness Rectal exam: PRESENT: deferred Extremities exam: PRESENT: full ROM. ABSENT: calf tenderness, clubbing, pedal edema Neurological exam: PRESENT: alert, awake, oriented to person, oriented to place, oriented to time, oriented to situation, CN II-XII grossly intact. ABSENT: motor sensory deficit Psychiatric exam: PRESENT: appropriate affect, normal mood. ABSENT: homicidal ideation, suicidal ideation Skin exam: PRESENT: dry, intact, warm. ABSENT: cyanosis, rash Results Laboratory Results: WBC 7.8 10^3/uL (4.0-10.5) 02/19/19 05:29 RBC 4.31 10^6/uL (3.72-5.28) 02/19/19 05:29 Hgb 13.8 g/dL (12.0-15.5) 02/19/19 05:29 Hct 39.8 % (36.0-47.0) 02/19/19 05:29 MCV 92 fl (80-97) 02/19/19 05:29 MCH 31.9 pg (27.0-33.4) 02/19/19 05:29 MCHC 34.5 g/dL (32.0-36.0) 02/19/19 05:29 RDW 13.4 % (11.5-14.0) 02/19/19 05:29 Plt Count 521 10^3/uL (150-450) H 02/19/19 05:29 Lymph % (Auto) 35.3 % (13-45) 02/19/19 05:29 [place] % (Auto) 10.9 % (3-13) 02/19/19 05:29 Eos % (Auto) 1.1 % (0-6) 02/19/19 05:29 Baso % (Auto) 0.7 % (0-2) 02/19/19 05:29 Absolute Neuts (auto) 4.1 10^3/uL (1.7-8.2) 02/19/19 05:29 Absolute Lymphs (auto) 2.7 10^3/uL (0.5-4.7) 02/19/19 05:29 Absolute Monos (auto) 0.8 10^3/uL (0.1-1.4) 02/19/19 05:29 Absolute Eos (auto) 0.1 10^3/uL (0.0-0.6) 02/19/19 05:29 Absolute Basos (auto) 0.1 10^3/uL (0.0-0.2) 02/19/19 05:29 Total Counted 100 02/17/19 23:30 Seg Neutrophils % 52.0 % (42-78) 02/19/19 05:29 Seg Neuts % (Manual) 93 % (42-78) H 02/17/19 23:30 Band Neutrophils % 2 % (3-5) L 02/17/19 23:30 Lymphocytes % (Manual) 5 % (13-45) L 02/17/19 23:30 Monocytes % (Manual) 0 % (3-13) L 02/17/19 23:30 Eosinophils % (Manual) 0 % (0-6) 02/17/19 23:30 Basophils % (Manual) 0 % (0-2) 02/17/19 23:30 Abs Neuts (Manual) 24.4 10^3/uL (1.7-8.2) H 02/17/19 23:30 Abs Lymphs (Manual) 1.3 10^3/uL (0.5-4.7) 02/17/19 23:30 Abs Monocytes (Manual) 0.0 10^3/uL (0.1-1.4) L 02/17/19 23:30 Absolute Eos (Manual) 0.0 10^3/uL (0.0-0.6) 02/17/19 23:30 Abs Basophils (Manual) 0.0 10^3/uL (0.0-0.2) 02/17/19 23:30 Toxic Granulation SLIGHT 02/17/19 23:30 Toxic Vacuolation PRESENT 02/17/19 23:30 Large Platelets PRESENT 02/17/19 23:30 Platelet Comment INCREASED 02/17/19 23:30 Poikilocytosis SLIGHT 02/17/19 23:30 Tear Drop Cells SLIGHT 02/17/19 23:30 Ovalocytes SLIGHT 02/17/19 23:30 Sodium 141.7 mmol/L (137-145) 02/19/19 05:29 Potassium 3.8 mmol/L (3.6-5.0) 02/19/19 05:29 Chloride 99 mmol/L (98-107) 02/19/19 05:29 Carbon Dioxide 32 mmol/L (22-30) H 02/19/19 05:29 Anion Gap 11 (5-19) 02/19/19 05:29 BUN 10 mg/dL (7-20) 02/19/19 05:29 Creatinine 0.77 mg/dL (0.52-1.25) 02/19/19 05:29 Est GFR ( Amer) > 60 (>60) 02/19/19 05:29 Est GFR (MDRD) Non-Af > 60 (>60) 02/19/19 05:29 Glucose 91 mg/dL (75-110) 02/19/19 05:29 Calcium 9.4 mg/dL (8.4-10.2) 02/19/19 05:29 Total Bilirubin 0.7 mg/dL (0.2-1.3) 02/17/19 23:30 Direct Bilirubin 0.3 mg/dL (0.0-0.4) 02/17/19 23:30 Neonat Total Bilirubin Not Reportable 02/17/19 23:30 Neonat Direct Bilirubin Not Reportable 02/17/19 23:30 Neonat Indirect Bili Not Reportable 02/17/19 23:30 AST 20 U/L (14-36) 02/17/19 23:30 ALT 21 U/L (<35) 02/17/19 23:30 Alkaline Phosphatase 115 U/L (38-126) 02/17/19 23:30 Creatine Kinase 40 U/L (30-135) 02/17/19 23:30 CK-MB (CK-2) 0.25 ng/mL (<4.55) 02/17/19 23:30 Troponin I < 0.012 ng/mL 02/17/19 23:30 Total Protein 8.1 g/dL (6.3-8.2) 02/17/19 23:30 Albumin 4.0 g/dL (3.5-5.0) 02/17/19 23:30 02/17/19 23:30 CK-MB (CK-2) 0.25 Troponin I < 0.012 Impressions: Chest X-Ray 02/17/19 23:21 IMPRESSION: No acute cardiopulmonary findings. Chest/Abdomen CTA 02/18/19 04:02 IMPRESSION: 1. No evidence of pulmonary embolus. 2. Left greater than right lower lobe opacities favored to be atelectasis but cannot exclude early pneumonia. 3. Bronchial wall thickening suggesting bronchitis with some bilateral lower lobe mucus plugging. 4. Emphysema. Plan Plan of Treatment: The patient is discharged home in stable condition. She is instructed to follow up with her primary care provider within 1 week. Complete course of azithromycin. Take other medications as prescribed. Do NOT smoke. Drink plenty of fluids and rest. Return to the emergency department as needed for concerning symptoms. Time Spent: Greater than 30 Minutes Stroke Is this a Stroke Patient?: No Acute Heart Failure - Is this a Heart Failure Patient?: No
== END 2019-02-20 14:26 | disposition home or self-care (01) | DRG 194 ==
LOC: ER 22:00 → EH 02-18 05:58 → 4N 02-18 17:30
PROVIDERS: ADMIT Internal Medicine; ATTEND Internal Medicine
DX: J18.9 Pneumonia, unspecified organism (principal); J44.1 Chronic obstructive pulmonary disease with (acute) exacerbation; J44.0 Chronic obstructive pulmonary disease with (acute) lower respiratory infection; F17.210 Nicotine dependence, cigarettes, uncomplicated; Z79.899 Other long term (current) drug therapy
CPT/HCPCS: 36415; 71045; 71275; 80048; 80053; 82550; 82553; 84484; 85025; 87040; 93005; 93010; 94640; 94667; 94668; 94799; 99285; J0456; J0696; J1644; J2405; J3490; J7060; J7620

== ENCOUNTER → 2019-03-26 | Outpatient (CLI) | payer OTHER ==
[2019-03-26 10:36] LABS: ABSOLUTE EOSINOPHILS # (AUTO) 0.1 10^3/uL (0.0-0.6); ABSOLUTE LYMPHOCYTES (AUTO) 2.8 10^3/uL (0.5-4.7); ABSOLUTE MONOCYTES (AUTO) 0.3 10^3/uL (0.1-1.4); ABSOLUTE NEUT (AUTO) 3.2 10^3/uL (1.7-8.2); BASOPHILS % (AUTO) 0.6 % (0-2); EOSINOPHILS % (AUTO) 1.3 % (0-6); HEMATOCRIT 38.9 % (36.0-47.0); HEMOGLOBIN 13.3 g/dL (12.0-15.5); LYMPHOCYTES % (AUTO) 43.4 % (13-45); MEAN CORPUSCULAR HEMOGLOBIN 31.7 pg (27.0-33.4); MEAN CORPUSCULAR HGB CONC 34.1 g/dL (32.0-36.0); MEAN CORPUSCULAR VOLUME 93 fl (80-97); MONOCYTES % (AUTO) 5.1 % (3-13); PLATELET COUNT 305 10^3/uL (150-450); RED BLOOD COUNT 4.18 10^6/uL (3.72-5.28); SEGMENTED NEUTROPHILS % (AUTO) 49.6 % (42-78); TOTAL CELLS COUNTED % (AUTO) 100 %; WHITE BLOOD COUNT 6.4 10^3/uL (4.0-10.5)
[2019-03-26 11:02] LABS: ALBUMIN 4.1 g/dL (3.5-5.0); ALKALINE PHOSPHATASE 94 U/L (38-126); ANION GAP 10 (5-19); ASPARTATE AMINO TRANSFERASE 24 U/L (14-36); BILIRUBIN,DIRECT 0.2 mg/dL (0.0-0.4); BILIRUBIN,TOTAL 0.4 mg/dL (0.2-1.3); BLOOD UREA NITROGEN 7 mg/dL (7-20); CALCIUM 9.8 mg/dL (8.4-10.2); CARBON DIOXIDE 21 mmol/L (22-30); CHLORIDE 111 mmol/L (98-107); GLUCOSE 70 mg/dL (75-110); POTASSIUM 4.2 mmol/L (3.6-5.0); TOTAL PROTEIN 7.4 g/dL (6.3-8.2)
== END ==
LOC: CCC 10:04
DX: E28.310 Symptomatic premature menopause (principal)
CPT/HCPCS: 36415; 80053; 83036; 84443; 85025